=== PATIENT | male | born 1955 | race Caucasian/White ===

== ENCOUNTER 2018-01-04 08:39 | Emergency (ER) | payer MEDICARE, BC ==
[~2018-01-04] VITALS: Ht 170.2 cm; Wt 129.7 kg
[~2018-01-04 08:39] MED LIST: ALBU90OI INH; ALBU90OI61 INH; ALPR1 PO; ATOR40TA PO; Duoneb 2.5-0.5 M3 ML INH; FLUSAL5005 INH; FURO20 PO; GUAI120S1 PO; HYDACE10B PO; K-Dur20 MEQ PO; Kristalose20 GM PO; LACT10SY PO; LEVFLO500 PO; Lasix20 MG PO; Lasix40 MG PO; Norco 10-325 T1 EACH PO; POTASSIUM CHLO20 MEQ PO; POTCHL20ER PO; PRED1 PO; PRED20 PO; Prednisone20 MG PO; TIOT18 INH
[2018-01-04] MEDS ORDERED: PRED10 PO (09:08)
[2018-01-04 09:18] LABS: BASOPHILS ABSOLUTE AUTO 0.05 K/mm3 (0.00-0.23); BASOPHILS PERCENT AUTO 0 % (0-2); EOSINOPHILS ABSOLUTE AUTO 0.03 K/mm3 (0.00-0.68); EOSINOPHILS PERCENT AUTO 0 % (0-6); Hematocrit 40.6 % (37.0-53.0); Hemoglobin 13.3 g/dL (13.5-17.5); IMMATURE GRAN ABSOLUTE AUTO 0.06 K/mm3 (0.00-0.10); IMMATURE GRAN PERCENT AUTO 1 % (0-1); LYMPHOCYTES ABSOLUTE AUTO 1.04 K/mm3 (0.84-5.20); LYMPHOCYTES PERCENT AUTO 9 % (21-46); MONOCYTES ABSOLUTE AUTO 0.35 K/mm3 (0.16-1.47); MONOCYTES PERCENT AUTO 3 % (4-13); Mean Corpuscular HGB 27.7 pg (26.0-34.0); Mean Corpuscular HGB Conc 32.8 g/dL (31.5-36.5); Mean Corpuscular Volume 84 fL (80-100); NEUTROPHILS ABSOLUTE AUTO 10.19 K/mm3 (1.96-9.15); NEUTROPHILS PERCENT AUTO 87 % (41-73); Platelet Count 269 K/mm3 (150-400); RDW Coefficient Variation 13.3 % (11.7-14.2); RDW Standard Deviation 41.4 fL (35.1-46.3); Red Blood Cell Count 4.81 M/mm3 (4.30-5.90); White Blood Cell Count 11.72 K/mm3 (4.00-11.30)
[2018-01-04 09:38] LABS: Alanine Aminotransfer (ALT/SGP 41 U/L (12-78); Albumin, Blood 3.8 g/dL (3.4-5.0); Albumin/Globulin Ratio 0.9 (0.8-1.8); Alk Phos 58 U/L (50-136); Anion Gap 8 mmol/L (6-16); Aspartate Aminotrans (AST/SGOT 21 U/L (12-37); Bilirubin, Total 0.6 mg/dL (0.1-1.0); Blood Urea Nitrogen 20 mg/dL (8-24); Bun/Creatinine Ratio 25.4 (12.0-20.0); CO2, Blood 28 mmol/L (21-32); Calcium, Blood 9.8 mg/dL (8.5-10.1); Chloride, Blood 98 mmol/L (98-108); Creatinine, Blood 0.79 mg/dL (0.60-1.20); Globulin, Blood 4.2 g/dL (2.2-4.0); Glomerular Filtration Rate >60 (60-); Glucose, Blood 138 mg/dL (70-99); Potassium, Blood 4.3 mmol/L (3.5-5.5); Sodium, Blood 134 mmol/L (136-145); Troponin I <0.015 ng/mL (0.000-0.040)
[2018-01-04] MEDS ORDERED: HYDHCL25 PO (11:09)
== END 2018-01-04 11:43 | disposition home or self-care (01) ==
LOC: ER 08:39
PROVIDERS: Emergency Medicine
DX: R10.9 Unspecified abdominal pain (principal); J44.9 Chronic obstructive pulmonary disease, unspecified; E78.5 Hyperlipidemia, unspecified; F41.9 Anxiety disorder, unspecified; Z88.1 Allergy status to other antibiotic agents; Z79.899 Other long term (current) drug therapy; Z79.52 Long term (current) use of systemic steroids; F17.200 Nicotine dependence, unspecified, uncomplicated
CPT/HCPCS: 36415; 71046; 74177; 80053; 83690; 84484; 85025; 93005; 93010; Q9967

== ENCOUNTER 2018-11-01 12:50 | Emergency (ER) | payer MEDICARE, BC ==
[~2018-11-01] VITALS: Ht 170.2 cm; Wt 122.0 kg
[~2018-11-01 12:50] MED LIST changes: +HYDHCL25 PO; +PRED10 PO
[2018-11-01] MEDS ORDERED: ALBU2.5V5 (13:08)
[2018-11-01] MEDS ORDERED: Robaxin750 MG PO (13:09)
[2018-11-01] MEDS ORDERED: OMEPRAZOLE MAGN20 MG PO (13:10)
[2018-11-01] MEDS ORDERED: SERT50 PO (13:10)
[2018-11-01] MEDS ORDERED: AZIT250 PO (13:10)
[2018-11-01] MEDS ORDERED: PRED5 PO (13:10)
[2018-11-01 14:16] LABS: BASOPHILS ABSOLUTE AUTO 0.08 K/mm3 (0.00-0.23); BASOPHILS PERCENT AUTO 1 % (0-2); EOSINOPHILS ABSOLUTE AUTO 0.19 K/mm3 (0.00-0.68); EOSINOPHILS PERCENT AUTO 2 % (0-6); Hematocrit 41.3 % (37.0-53.0); Hemoglobin 13.2 g/dL (13.5-17.5); IMMATURE GRAN ABSOLUTE AUTO 0.05 K/mm3 (0.00-0.10); IMMATURE GRAN PERCENT AUTO 1 % (0-1); LYMPHOCYTES ABSOLUTE AUTO 1.73 K/mm3 (0.84-5.20); LYMPHOCYTES PERCENT AUTO 16 % (21-46); MONOCYTES ABSOLUTE AUTO 0.67 K/mm3 (0.16-1.47); MONOCYTES PERCENT AUTO 6 % (4-13); Mean Corpuscular HGB 27.4 pg (26.0-34.0); Mean Corpuscular Volume 86 fL (80-100); Mean Platelet Volume 9.1 fL (9.1-12.4); NEUTROPHILS ABSOLUTE AUTO 8.11 K/mm3 (1.96-9.15); NEUTROPHILS PERCENT AUTO 75 % (41-73); Platelet Count 275 K/mm3 (150-400); RDW Standard Deviation 40.4 fL (35.1-46.3); Red Blood Cell Count 4.81 M/mm3 (4.30-5.90); White Blood Cell Count 10.83 K/mm3 (4.00-11.30)
[2018-11-01 14:32] LABS: Alanine Aminotransfer (ALT/SGP 28 U/L (12-78); Albumin, Blood 3.6 g/dL (3.4-5.0); Albumin/Globulin Ratio 0.9 (0.8-1.8); Alk Phos 66 U/L (50-136); Anion Gap 8 mmol/L (6-16); Aspartate Aminotrans (AST/SGOT 16 U/L (12-37); Bilirubin, Total 0.5 mg/dL (0.1-1.0); Blood Urea Nitrogen 14 mg/dL (8-24); Bun/Creatinine Ratio 19.4 (12.0-20.0); CO2, Blood 27 mmol/L (21-32); Calcium, Blood 8.6 mg/dL (8.5-10.1); Chloride, Blood 101 mmol/L (98-108); Creatinine, Blood 0.72 mg/dL (0.60-1.20); Globulin, Blood 4.1 g/dL (2.2-4.0); Glomerular Filtration Rate >60 (60-); Glucose, Blood 85 mg/dL (70-99); Potassium, Blood 3.9 mmol/L (3.5-5.5); Sodium, Blood 136 mmol/L (136-145); Total Protein, Blood 7.7 g/dL (6.4-8.2)
[2018-11-01] MEDS ORDERED: ALBU90OI6 INH (16:08)
[2018-11-01] MEDS ORDERED: CITRATE OF MAG296 ML PO (16:08)
== END 2018-11-01 16:21 | disposition home or self-care (01) ==
LOC: ER 12:50
PROVIDERS: Emergency Medicine
DX: K59.00 Constipation, unspecified (principal); J44.9 Chronic obstructive pulmonary disease, unspecified; E78.5 Hyperlipidemia, unspecified; Z87.891 Personal history of nicotine dependence
CPT/HCPCS: 36415; 74176; 80053; 83690; 85025; 93005; 93010; 99284-25

== ENCOUNTER 2019-04-14 16:06 | Inpatient (IN) | payer MEDICARE, BC ==
[~2019-04-14] VITALS: Ht 172.7 cm; Wt 81.7 kg
[~2019-04-14 16:06] MED LIST changes: +ALBU2.5V5 INH; +ALBU3IS INH; +ALBU90OI6 INH; +AZIT250; +AZIT250 PO; +Allergy Relief10 M1 PO; +BACL10 PO; +CITRATE OF MAG296 ML PO; +GAVILAX17 GM PO; +K-TAB ER20 MEQ PO; +OMEPRAZOLE MAGN20 MG PO; +OXYM.05NI; +PRED5 PO; +Robaxin750 MG PO; +SERT50 PO
[2019-04-14 16:35] LABS: BASOPHILS ABSOLUTE AUTO 0.06 K/mm3 (0.00-0.23); BASOPHILS PERCENT AUTO 1 % (0-2); EOSINOPHILS ABSOLUTE AUTO 0.04 K/mm3 (0.00-0.68); EOSINOPHILS PERCENT AUTO 0 % (0-6); Hematocrit 39.7 % (37.0-53.0); Hemoglobin 12.8 g/dL (13.5-17.5); IMMATURE GRAN ABSOLUTE AUTO 0.07 K/mm3 (0.00-0.10); IMMATURE GRAN PERCENT AUTO 1 % (0-1); LYMPHOCYTES ABSOLUTE AUTO 1.45 K/mm3 (0.84-5.20); LYMPHOCYTES PERCENT AUTO 11 % (21-46); MONOCYTES ABSOLUTE AUTO 0.76 K/mm3 (0.16-1.47); MONOCYTES PERCENT AUTO 6 % (4-13); Mean Corpuscular HGB 27.9 pg (26.0-34.0); Mean Corpuscular HGB Conc 32.2 g/dL (31.5-36.5); Mean Corpuscular Volume 87 fL (80-100); Mean Platelet Volume 8.9 fL (9.1-12.4); NEUTROPHILS ABSOLUTE AUTO 10.83 K/mm3 (1.96-9.15); NEUTROPHILS PERCENT AUTO 82 % (41-73); Platelet Count 274 K/mm3 (150-400); RDW Coefficient Variation 13.2 % (11.7-14.2); RDW Standard Deviation 41.6 fL (35.1-46.3); Red Blood Cell Count 4.59 M/mm3 (4.30-5.90); White Blood Cell Count 13.21 K/mm3 (4.00-11.30)
[2019-04-14 16:59] LABS: Alanine Aminotransfer (ALT/SGP 32 U/L (12-78); Albumin, Blood 3.6 g/dL (3.4-5.0); Albumin/Globulin Ratio 0.8 (0.8-1.8); Alk Phos 65 U/L (50-136); Anion Gap 3 mmol/L (6-16); Aspartate Aminotrans (AST/SGOT 17 U/L (12-37); Bilirubin, Total 0.6 mg/dL (0.1-1.0); Blood Urea Nitrogen 15 mg/dL (8-24); Bun/Creatinine Ratio 22.6 (12.0-20.0); CO2, Blood 30 mmol/L (21-32); Chloride, Blood 103 mmol/L (98-108); Creatinine, Blood 0.66 mg/dL (0.60-1.20); Globulin, Blood 4.3 g/dL (2.2-4.0); Glomerular Filtration Rate >60 (60-); Glucose, Blood 121 mg/dL (70-99); Potassium, Blood 3.9 mmol/L (3.5-5.5); Sodium, Blood 136 mmol/L (136-145); Total Protein, Blood 7.9 g/dL (6.4-8.2); Troponin I <0.015 ng/mL (0.000-0.040)
[2019-04-14] MEDS ORDERED: PROAIR RESPICL90 MCG INH (17:11)
[2019-04-14] MEDS ORDERED: OMEPRAZOLE20 MG PO ×2 (17:14→21:38)
[2019-04-14] MEDS ORDERED: AZIT250 PO (21:36)
[2019-04-14] MEDS ORDERED: Robaxin750 MG PO (21:36)
[2019-04-14] MEDS ORDERED: PRED5 PO (21:37)
[2019-04-14 23:14] LABS: Adenovirus Not Detected (NOT DETECT); Bordetella pertussis Not Detected (NOT DETECT); Chlamydophila pneumoniae Not Detected (NOT DETECT); Coronavirus 229E Not Detected (NOT DETECT); Coronavirus HKU1 Not Detected (NOT DETECT); Coronavirus NL63 Not Detected (NOT DETECT); Coronavirus OC43 Not Detected (NOT DETECT); Human Metapneumovirus Not Detected (NOT DETECT); Human Rhinovirus/Enterovirus Not Detected (NOT DETECT); Influenza A Not Detected (NOT DETECT); Influenza A/2009-H1 Not Detected (NOT DETECT); Influenza A/H1 Not Detected (NOT DETECT); Influenza A/H3 Not Detected (NOT DETECT); Influenza B Not Detected (NOT DETECT); Mycoplasma pneumoniae Not Detected (NOT DETECT); Parainfluenza Virus 1 Not Detected (NOT DETECT); Parainfluenza Virus 2 Not Detected (NOT DETECT); Parainfluenza Virus 3 Not Detected (NOT DETECT); Parainfluenza Virus 4 Not Detected (NOT DETECT); Respiratory Syncytial Virus Not Detected (NOT DETECT)
[2019-04-15 04:28] LABS: BASOPHILS ABSOLUTE AUTO 0.02 K/mm3 (0.00-0.23); BASOPHILS PERCENT AUTO 0 % (0-2); EOSINOPHILS ABSOLUTE AUTO 0.01 K/mm3 (0.00-0.68); EOSINOPHILS PERCENT AUTO 0 % (0-6); Hematocrit 37.9 % (37.0-53.0); Hemoglobin 12.5 g/dL (13.5-17.5); IMMATURE GRAN PERCENT AUTO 1 % (0-1); LYMPHOCYTES ABSOLUTE AUTO 0.86 K/mm3 (0.84-5.20); LYMPHOCYTES PERCENT AUTO 6 % (21-46); MONOCYTES ABSOLUTE AUTO 0.45 K/mm3 (0.16-1.47); MONOCYTES PERCENT AUTO 3 % (4-13); Mean Corpuscular HGB 28.7 pg (26.0-34.0); Mean Corpuscular Volume 87 fL (80-100); Mean Platelet Volume 9.1 fL (9.1-12.4); NEUTROPHILS ABSOLUTE AUTO 14.26 K/mm3 (1.96-9.15); NEUTROPHILS PERCENT AUTO 91 % (41-73); Platelet Count 296 K/mm3 (150-400); RDW Coefficient Variation 13.1 % (11.7-14.2); RDW Standard Deviation 41.6 fL (35.1-46.3); Red Blood Cell Count 4.36 M/mm3 (4.30-5.90)
--- NOTE | 2019-04-15 04:37 | NUR ---
SHIFT SUMMARY PT NEW ED ADMIT THIS EVENING. BREATHING SLOWLY IMPROVING. PT CONTINUES TO GET SOB W/ EXERTION BUT RECOVERS WELL ONCE RESTING AGAIN. PT ON 3 L O2 NC WHICH IS PT'S BASELINE HOME DOSE. O2 SATS IN THE MID 90'S. LUNG SOUNDS DIMINISHED WITH SOME WHEEZING IN THE BASES. BREATHING TX PER RT. PT AMBULATES WELL W/ FWW. STEADY ON HIS FEET. NO COMPLAINTS OF PAIN. PT DID NOT SLEEP VERY MUCH THIS EVENING. PT REPORTS THIS IS NORMAL FOR HIM. LACTIC ACID 2.1. DR BAEZA NOTIFIED, NS STARTED AT 150 ML/HR FOR ONE BAG. OTHERWISE NO ACUTE CHANGES. WILL CONTINUE TO MONITOR.
[2019-04-15 04:42] LABS: Anion Gap 5 mmol/L (6-16); Blood Urea Nitrogen 17 mg/dL (8-24); Bun/Creatinine Ratio 23.4 (12.0-20.0); CO2, Blood 30 mmol/L (21-32); Chloride, Blood 103 mmol/L (98-108); Creatinine, Blood 0.73 mg/dL (0.60-1.20); Glomerular Filtration Rate >60 (60-); Glucose, Blood 137 mg/dL (70-99); Potassium, Blood 4.6 mmol/L (3.5-5.5); Sodium, Blood 138 mmol/L (136-145)
--- NOTE | 2019-04-15 13:04 | NUR ---
PT TAKES OFF OXYGEN TO SEE WHAT HAPPENS WITH O2 SAT. WHEN PULSE OX MONITOR ALARMS PT SHOUTS FOR A NURSE TO COME SEE WHAT HIS OXYGEN SAT IS. EXPLAINED TO PT THAT HE SHOULD KEEP HIS O2 ON.
--- NOTE | 2019-04-15 15:42 | NUR ---
Patient is sitting on the edge of his bed and alert. Patient openly shares about his struggles with not being allowed to take Mos[place], his struggles with only seeing a bleak future and his struggles with his family unit complications. I explore with patient sources of meaning, purpose and dignity. I provide empathic listening, pastoral educational guidance counselor, compaionship and prayer. Patient responds well and expresses gratitude after the prayer and states that it was very encouraging.
--- NOTE | 2019-04-15 17:59 | NUR ---
SHIFT SUMMARY PT AXO, THOUGH TANANA. PT MEDICATED FOR PAIN AND ANXIETY PER EMAR. AT START OF SHIFT PT WAS ASKING MULTIPLE QUESTIONS ABOUT MEDICATIONS THAT HE "COULD GET" AND DOSAGES. PT STATING THAT HE HAS GONE TO REHAB FOR [facility] ADDICTION IN THE PAST. PT ON CONTINUOUS PULSE OXIMETRY, SATING AT ABOUT 93% AT REST. PT ON 3L. THOUGH AT ONE POINT TODAY, PT REMOVED NASAL CANNULA AND BECAME SOB AND ANXIOUS. NURSE EDUCATED THAT PT NEEDS TO LEAVE NC ON IN ORDER TO REDUCE SOB. BED IN LOW POSITION, CALL LIGHT WITHIN REACH. PT REFUSES TO BE OOB.
--- NOTE | 2019-04-15 18:23 | NUR ---
PT SLEEPING REVIEW OF HIS NEEDS WITH NURSING WILL RETURN
--- NOTE | 2019-04-16 03:25 | NUR ---
SHIFT SUMMARY PATIENT HAD NO ACUTE CHANGES OBSERVED THIS SHIFT. AXO X3 AND ONE ASSIST TO BSC. ON 3L O2 NC AND STATING 93% ON CONTINUOUS PULSE OXIMETRY. RT IN FOR MULTIPLE BREATHING TX. TRIBE AND NEED TO BE FACE TO FACE. VSS/AFEBRILE. DENIES PAIN AND N/V. SOB W/EXERTION. SLEPT FIRST PART OF SHIFT AND UP MID SHIFT. PATIENT ANXIOUS AT TIMES. CALL LIGHT IN REACH. BED IN LOWEST POSITION. WILL CONTINUE TO MONITOR UNTIL DAY SHIFT RN ASSUMES CARE.
[2019-04-16 04:59] LABS: BASOPHILS ABSOLUTE AUTO 0.05 K/mm3 (0.00-0.23); BASOPHILS PERCENT AUTO 0 % (0-2); EOSINOPHILS ABSOLUTE AUTO 0.04 K/mm3 (0.00-0.68); EOSINOPHILS PERCENT AUTO 0 % (0-6); Hematocrit 38.2 % (37.0-53.0); Hemoglobin 12.1 g/dL (13.5-17.5); IMMATURE GRAN ABSOLUTE AUTO 0.14 K/mm3 (0.00-0.10); IMMATURE GRAN PERCENT AUTO 1 % (0-1); LYMPHOCYTES ABSOLUTE AUTO 2.23 K/mm3 (0.84-5.20); LYMPHOCYTES PERCENT AUTO 18 % (21-46); MONOCYTES ABSOLUTE AUTO 0.95 K/mm3 (0.16-1.47); MONOCYTES PERCENT AUTO 8 % (4-13); Mean Corpuscular HGB 27.6 pg (26.0-34.0); Mean Corpuscular HGB Conc 31.7 g/dL (31.5-36.5); Mean Corpuscular Volume 87 fL (80-100); Mean Platelet Volume 9.2 fL (9.1-12.4); NEUTROPHILS ABSOLUTE AUTO 9.26 K/mm3 (1.96-9.15); NEUTROPHILS PERCENT AUTO 73 % (41-73); Platelet Count 272 K/mm3 (150-400); RDW Coefficient Variation 13.3 % (11.7-14.2); RDW Standard Deviation 42.1 fL (35.1-46.3); Red Blood Cell Count 4.39 M/mm3 (4.30-5.90); White Blood Cell Count 12.67 K/mm3 (4.00-11.30)
[2019-04-16 05:21] LABS: Anion Gap 5 mmol/L (6-16); Blood Urea Nitrogen 20 mg/dL (8-24); Bun/Creatinine Ratio 26.3 (12.0-20.0); CO2, Blood 31 mmol/L (21-32); Chloride, Blood 104 mmol/L (98-108); Creatinine, Blood 0.76 mg/dL (0.60-1.20); Glomerular Filtration Rate >60 (60-); Glucose, Blood 105 mg/dL (70-99); Potassium, Blood 4.1 mmol/L (3.5-5.5); Sodium, Blood 140 mmol/L (136-145)
--- NOTE | 2019-04-16 16:42 | NUR ---
SHIFT SUMMARY PT AXO THOUGH NOTTAWASEPPI POTAWATOMI AND MAKES ODD STATEMENTS AT TIMES. VSS. PT SHOWERED TODAY AFTER ENCOURAGEMENT FROM NURSE AND INSIDE BARREL POLISHER, HE STATES THAT HE HAS NOT SHOWERED IN "YEARS" AND DOES SPONGE BATHS ONLY AT HOME. AFTER SHOWER, PT REPORTS FEELING BETTER. PT REQUESTED TO HAVE OXYGEN TURNED UP TO 3.5L DUE TO HIS SAT AT 91%. THIS NURSE EDUCATED PT ABOUT O2 GOALS. PT INSISTED AND O2 SAT INCREASED TO 96%. RT GRACE PRAKASH TITRATED O2 BACK TO 3L, SEE NOTE . PT 93% ON 3L AT THIS TIME. PT REMINDED TO REMAIN CALM WHEN HE FEELS LIKE HE CANNOT BREATHE. MEDICATED FOR ANXIETY PER EMAR. PT UP WITH 1 ASSIST TO BATHROOM. BED IN LOW POSITION, CALL LIGHT WITHIN REACH. NEW IV PLACED THIS SHIFT PER PT REQUEST FOR COMFORT.
--- NOTE | 2019-04-17 03:10 | NUR ---
SHIFT SUMMARY PATIENT HAD NO ACUTE CHANGES OBSERVED THIS SHIFT. AXOX 3 AND INDEPENDENT. VSS/AFEBRILE. DENIES PAIN AND N/V. SOB W/EXERTION. ON 3L O2 NC STATING 93% ON CONTINUOUS PULSE OXIMETRY. RT IN FOR MULTIPLE BREATHING TX. SOLU-MEDROL GIVEN PER EMAR. DULCOLAX GIVEN PER PATIENT REQUEST FOR CONSTIPATION. PATIENT STARTING TO HAVE SMALL BM'S. CALL LIGHT IN REACH. BED IN LOWEST POSITION. WILL CONTINUE TO MONITOR UNTIL DAY SHIFT NURSE ASSUMES CARE.
--- NOTE | 2019-04-17 18:53 | NUR ---
SHIFT SUMMARY NO ACUTE CHANGES TO PRESENT THIS SHIFT. PT SITTING UP TO EOB, DURING SHIFT REPORT THIS AM. PLEASANT AND CO-OP THRU OUT THE DAY. PARENTS CAME IN TO VISIT. PT TALKED ON PHONE, OFF AND ON TO PASS THE TIME. IS LOOKING FORWARD TO GOING HOME; "GETTING BORED". PT REPORTS NOT BEING ABLE TO SLEEP VERY LONG AT A TIME; RECEIVING SOLUMEDROL Q8 WELL RT TX'S. CXR DONE TODAY. PT REPORTS THAT HE IS FEELING BETTER. NOT SOB. CALL LT IN REACH.
[2019-04-18 05:01] LABS: BASOPHILS ABSOLUTE AUTO 0.02 K/mm3 (0.00-0.23); BASOPHILS PERCENT AUTO 0 % (0-2); EOSINOPHILS PERCENT AUTO 0 % (0-6); Hematocrit 39.1 % (37.0-53.0); Hemoglobin 12.5 g/dL (13.5-17.5); IMMATURE GRAN ABSOLUTE AUTO 0.23 K/mm3 (0.00-0.10); IMMATURE GRAN PERCENT AUTO 2 % (0-1); LYMPHOCYTES ABSOLUTE AUTO 0.99 K/mm3 (0.84-5.20); LYMPHOCYTES PERCENT AUTO 7 % (21-46); MONOCYTES ABSOLUTE AUTO 0.33 K/mm3 (0.16-1.47); MONOCYTES PERCENT AUTO 2 % (4-13); Mean Corpuscular HGB 27.9 pg (26.0-34.0); Mean Corpuscular Volume 87 fL (80-100); Mean Platelet Volume 9.1 fL (9.1-12.4); NEUTROPHILS ABSOLUTE AUTO 13.75 K/mm3 (1.96-9.15); NEUTROPHILS PERCENT AUTO 90 % (41-73); Platelet Count 343 K/mm3 (150-400); RDW Coefficient Variation 13.1 % (11.7-14.2); RDW Standard Deviation 41.6 fL (35.1-46.3); Red Blood Cell Count 4.48 M/mm3 (4.30-5.90); White Blood Cell Count 15.32 K/mm3 (4.00-11.30)
[2019-04-18 05:52] LABS: Anion Gap 6 mmol/L (6-16); Blood Urea Nitrogen 22 mg/dL (8-24); Bun/Creatinine Ratio 32.6 (12.0-20.0); CO2, Blood 29 mmol/L (21-32); Calcium, Blood 9.3 mg/dL (8.5-10.1); Chloride, Blood 100 mmol/L (98-108); Creatinine, Blood 0.68 mg/dL (0.60-1.20); Glomerular Filtration Rate >60 (60-); Glucose, Blood 221 mg/dL (70-99); Potassium, Blood 4.3 mmol/L (3.5-5.5); Sodium, Blood 135 mmol/L (136-145)
--- NOTE | 2019-04-18 06:21 | NUR ---
PT with obesity and emphysema oxygen dependent continues on IV steroids and complains thaey cause bloating and abd distention. He co severe constipation, and he requests dulcolax tabs. Started on miralax to tx. Encouraged routine bowel care to promote regular elimination. He is requiring extra oxygen baseline 2 l nc and he is at 3.5l, sleeps upright to promote lung expansion.
--- NOTE | 2019-04-18 17:16 | NUR ---
SHIFT SUMMARY NO ACUTE CHANGES. PATIETN DENIES PAIN, NAUSEA, AND SHORTNESS OF BREATH. 3L NC TO MAINTAIN OXYGEN SATURATION. PATIENT UP INDEPENDENT IN ROOM. CALL LIGHT IN REACH.
--- NOTE | 2019-04-19 04:05 | NUR ---
SHIFT SUMMARY PT GENERALLY ANXIOUS. HE HAS RESTED OFF AND ON THIS SHIFT. CLOSER TO 0100 PT REQUESTED ATIVAN. HE EXPRESSED FRUSTRATION ABOUT HIS ILLNESS AND ABOUT HIS FATHER'S SUFFERING WITH DEMENTIA. HE HAD SOME LAMONT BASED QUESTIONS AND REQUESTED A VISIT FROM PASTORAL CARE. WILL PLACE NURSING ORDER PER PT REQUEST. DURING SHIFT PT WAS TALKING LOUDLY TO HIMSELF IN THE ROOM FOR ABOUT HALF AN HOUR. IT WAS DIFFICULT TO MAKE OUT WHAT HE WAS SAYING. I INITALLY THOUGHT PT WAS ON THE PHONE, HOWEVER DISCOVERED HE WAS TALKING TO HIMSELF. PT HAS BEEN UP AND INDEPENDENT IN THE ROOM. STEADY ON HIS FEET. LUNGS DIMINISHED WITH CRACKLES IN THE BASES. 3L O2 IN PLACE. VITALS STABLE. PT PLESANT AND COOPERATIVE WITH CARE. WILL CONTINUE TO MONITOR AND REPORT TO ONCOMING RN.
--- NOTE | 2019-04-19 15:42 | NUR ---
SHIFT SUMMARY NO ACUTE CHANGES. PATIENT MEDICATED X 1 FOR PAIN. DENIES NAUSEA AND HSORTNESS OF BREATH. PATIENT NAPPING AND CHATTING ON PHONE DURING SHIFT. PATIENT'S MOTHER CAME TO VISIT DURING LUNCH. PATIENT BECAME ANXIOUS IN THE AFTERNOON BUT STATED HE DID NOT NEED MEDICATION AND HAD JUST BECOME TOO FORGE OPERATOR HELPER HIS ROOM. PATIENT INDEPENDENT IN ROOM. CALL LIGHT IN REACH.
--- NOTE | 2019-04-20 04:11 | NUR ---
SHIFT SUMMARY NO ACUTE CHANGES TO REPORT. PT HAS RESTED OFF AND ON THIS SHIFT. PT HAS SOME ANXIETY, MEDICATED X1 WITH PO ATIVAN. LUNG SOUNDS DIMINISHED T/O. PT HAS BEEN USING FLUTTER VALVE AND REPORTS PRODUCTIVE COUGH. BREATHING TREATMENTS PROVIDED PER EMAR ORDERS. PT INDEPENDENT IN THE ROOM. VITALS STABLE. WILL CONTINUE TO MONITOR AND REPORT TO ONCOMING RN.
[2019-04-20 04:44] LABS: Hematocrit 41.1 % (37.0-53.0); Hemoglobin 13.1 g/dL (13.5-17.5); Mean Corpuscular HGB 27.6 pg (26.0-34.0); Mean Corpuscular HGB Conc 31.9 g/dL (31.5-36.5); Mean Corpuscular Volume 87 fL (80-100); Platelet Count 303 K/mm3 (150-400); RDW Coefficient Variation 13.2 % (11.7-14.2); RDW Standard Deviation 42.4 fL (35.1-46.3); Red Blood Cell Count 4.74 M/mm3 (4.30-5.90); White Blood Cell Count 13.07 K/mm3 (4.00-11.30)
[2019-04-20 05:20] LABS: Anion Gap 5 mmol/L (6-16); Blood Urea Nitrogen 26 mg/dL (8-24); Bun/Creatinine Ratio 33.5 (12.0-20.0); CO2, Blood 34 mmol/L (21-32); Calcium, Blood 8.8 mg/dL (8.5-10.1); Chloride, Blood 101 mmol/L (98-108); Creatinine, Blood 0.78 mg/dL (0.60-1.20); Glomerular Filtration Rate >60 (60-); Glucose, Blood 128 mg/dL (70-99); Potassium, Blood 3.8 mmol/L (3.5-5.5); Sodium, Blood 140 mmol/L (136-145)
--- NOTE | 2019-04-20 17:32 | NUR ---
PT AOX4 AND COOPERATIVE OF CARE. INDEPENDENT TO RESTROOM. PT CALLS APPROPRIATELY. PT RESTING IN BED MOST OF THE DAY. HOME O2 EVAL COMPLETED. WILL CONTINUE TO MONITOR. TREATED FOR STOMACH PAIN PER EMAR.
--- NOTE | 2019-04-21 03:08 | NUR ---
ASSUMED CARE OF THE PATIENT. PATIENT AWAKE AND ASKING FOR PAIN MEDS. STATES PAIN IS IN ABDOMIN AND AROUND SIDES. ULTRAM GIVEN. DENIES ANY OTHER NEEDS OR CONCERNS AT THIS TIME.
--- NOTE | 2019-04-21 03:08 | NUR ---
SHIFT SUMMARY PT ADMITTED FOR COPD EXACERBATION. FULL CODE. REGULAR DIET. UP IN CHAIR FOR MEALS. CONTINUOUS PULSE OXIMETER. ENCOURAGE AMBULATION WITH O2. LOVENOX FOR DVT PROPHYLAXIS. 20 G IV TO L HAND. 3L O2 PER PT BASELINE. INDEPENDENT IN ROOM. TAKES MEDICATIONS WHOLE. POSSIBLE DICHARGE TODAY. PT WITH COMPLAINTS OF PAIN X1 AND MEDICATED PER EMAR. C/O ANXIETY X1 ONE, MEDICATED [ER EMAR. PT APPEARS TO SLEEP COMFORTABLY OFF AND ON THIS NIGHT. PT IS AWAKE AT THIS TIME WITH NO APPARRENT SIGNS OF ACUTE DISTRESS. ABLE TO MAKE NEEDS KNOWN AND CALL LIGHT IN REACH.
--- NOTE | 2019-04-21 06:23 | NUR ---
SHIFT SUMMARY: ASSUMED CARE OF THE PATIENT AROUND 0300. SINCE THEN THE PATIENT HAS BEEN PLEASANT AND COOPERATIVE. HE HAS REMAINED INDEPENDENT IN HIS ROOM. HE HAS GOTTEN ONE DOSE OF ULTRAM FOR PAIN. HE HAS TALKED TO SELF OFF AND ON SINCE THEN WITH NO ONE IN THE ROOM. SOMETIMES IN HIS SLEEP. HE HAS DENIED ANY NEEDS WHEN APPROCHED DURING THE EPISODES OF TALKING TO SELF, OR SIGNS OF CONFUSION. WILL CONTINUE TO MONITOR UNTIL DAY SHIFT RN ARRIVES.
[2019-04-21] MEDS ORDERED: AIRDUO RESPICL1 EAC2 INH (10:25)
[2019-04-21] MEDS ORDERED: DOXY100 PO (10:26)
[2019-04-21] MEDS ORDERED: GUAI600T33 PO (10:27)
[2019-04-21] MEDS ORDERED: TRAM50 PO (10:28)
[2019-04-21] MEDS ORDERED: Prednisone10 MG PO (10:32)
--- NOTE | 2019-04-21 11:29 | NUR ---
PT DISCHARGED AT 1325. ALL PAPERWORK REVEIWED AND EDUCATIONAL MATERIAL SENT WITH PT. PT HAD HIS MOTHER BRING HIS O2 TANK FROM HOME FOR DISCHARGE. MEDICATIONS FAXED TO [facility]. PT WAS SET UP WITH PACKET TO SET UP CARE AT [facility]. PT WAS INSTRUCTED TO GO TO [facility] FOR FOLLOW UP APPOINTMENT. PT TOOK ALL BELONGINGS WITH HIM. PT WAS ESCORTED VIA WHEELCHAIR BY NURSE TO [facility].
== END 2019-04-21 11:23 | disposition home or self-care (01) | DRG 871 ==
LOC: ER 16:06 → MEDS 20:09 → ENPENDDIS 04-21 11:09 → MEDS 04-21 11:23
PROVIDERS: Emergency Medicine; Internal Medicine; Nurse Practitioner Acute Care; ADMIT Hospitalist
DX: A41.9 Sepsis, unspecified organism (principal); J96.21 Acute and chronic respiratory failure with hypoxia; J18.9 Pneumonia, unspecified organism; J44.1 Chronic obstructive pulmonary disease with (acute) exacerbation; J44.0 Chronic obstructive pulmonary disease with (acute) lower respiratory infection; R65.20 Severe sepsis without septic shock; G25.81 Restless legs syndrome; Z74.09 Other reduced mobility; F41.9 Anxiety disorder, unspecified; E66.01 Morbid (severe) obesity due to excess calories; Z88.1 Allergy status to other antibiotic agents; Z99.81 Dependence on supplemental oxygen; Z87.891 Personal history of nicotine dependence; Z79.51 Long term (current) use of inhaled steroids; Z79.899 Other long term (current) drug therapy; Z68.27 Body mass index [BMI] 27.0-27.9, adult
CPT/HCPCS: 0099U; 36415; 71046; 80048; 80053; 83605; 83880; 84145; 84484; 85025; 85027; 87040; 93005; 93010; 94640; 94644; 94760; 94761; 94762; 96374; 96375; 99285-25; A9270; J1170; J1650; J1956; J2405; J2930; J7030; J7512; Q0163

== ENCOUNTER 2020-01-19 13:40 | Inpatient (IN) | payer MEDICARE, BC, OTHER ==
[~2020-01-19] VITALS: Ht 170.2 cm; Wt 126.3 kg
[~2020-01-19 13:40] MED LIST changes: +AIRDUO RESPICL1 EAC2 INH; -ALBU2.5V5 INH; +DOXY100 PO; +GUAI600T33 PO; -K-TAB ER20 MEQ PO; +OMEPRAZOLE20 MG PO; +Prednisone10 MG PO; -SERT50 PO; -TIOT18 INH
[2020-01-19 14:26] LABS: BASOPHILS ABSOLUTE AUTO 0.06 K/mm3 (0.00-0.23); BASOPHILS PERCENT AUTO 1 % (0-2); EOSINOPHILS ABSOLUTE AUTO 0.22 K/mm3 (0.00-0.68); EOSINOPHILS PERCENT AUTO 3 % (0-6); Hematocrit 40.9 % (37.0-53.0); IMMATURE GRAN ABSOLUTE AUTO 0.04 K/mm3 (0.00-0.10); IMMATURE GRAN PERCENT AUTO 0 % (0-1); LYMPHOCYTES ABSOLUTE AUTO 1.15 K/mm3 (0.84-5.20); LYMPHOCYTES PERCENT AUTO 13 % (21-46); MONOCYTES ABSOLUTE AUTO 0.56 K/mm3 (0.16-1.47); MONOCYTES PERCENT AUTO 6 % (4-13); Mean Corpuscular HGB 27.5 pg (26.0-34.0); Mean Corpuscular HGB Conc 31.8 g/dL (31.5-36.5); Mean Corpuscular Volume 87 fL (80-100); Mean Platelet Volume 9.6 fL (9.1-12.4); NEUTROPHILS ABSOLUTE AUTO 6.94 K/mm3 (1.96-9.15); NEUTROPHILS PERCENT AUTO 77 % (41-73); Platelet Count 278 K/mm3 (150-400); RDW Coefficient Variation 12.6 % (11.7-14.2); RDW Standard Deviation 40.2 fL (35.1-46.3); Red Blood Cell Count 4.73 M/mm3 (4.30-5.90); White Blood Cell Count 8.97 K/mm3 (4.00-11.30)
[2020-01-19 14:42] LABS: Alanine Aminotransfer (ALT/SGP 29 U/L (12-78); Albumin, Blood 3.9 g/dL (3.4-5.0); Alk Phos 60 U/L (50-136); Anion Gap 4 mmol/L (6-16); Aspartate Aminotrans (AST/SGOT 20 U/L (12-37); Bilirubin, Total 0.4 mg/dL (0.1-1.0); Blood Urea Nitrogen 15 mg/dL (8-24); Bun/Creatinine Ratio 16.2 (12.0-20.0); CO2, Blood 30 mmol/L (21-32); Calcium, Blood 9.2 mg/dL (8.5-10.1); Chloride, Blood 102 mmol/L (98-108); Creatinine, Blood 0.93 mg/dL (0.60-1.20); Globulin, Blood 3.9 g/dL (2.2-4.0); Glomerular Filtration Rate >60 (60-); Glucose, Blood 116 mg/dL (70-99); Potassium, Blood 4.5 mmol/L (3.5-5.5); Sodium, Blood 136 mmol/L (136-145); Total Protein, Blood 7.8 g/dL (6.4-8.2)
[2020-01-19 14:43] LABS: Troponin I <0.015 ng/mL (0.000-0.040)
[2020-01-19 16:39] LABS: PCO2 Arterial 53.3 mmHg (35-45); PO2 Arterial 80.5 mmHg (80-100); pH Blood Arterial 7.37 (7.35-7.45)
[2020-01-19] MEDS ORDERED: ALBU90OI INH (17:30)
[2020-01-19] MEDS ORDERED: Budesonide0.5 MG/2 M NEB (17:31)
[2020-01-19] MEDS ORDERED: Duoneb 2.5-0.5 M3 ML NEB (17:32)
[2020-01-19] MEDS ORDERED: FURO20 PO (17:32)
[2020-01-19] MEDS ORDERED: TRAM50 PO (17:33)
[2020-01-19] MEDS ORDERED: POTA10T PO (17:33)
[2020-01-19] MEDS ORDERED: TIOT18 INH (17:34)
[2020-01-19] MEDS ORDERED: SERT50 PO (17:50)
--- NOTE | 2020-01-19 19:17 | NUR ---
Received report from MAYRA Husain-ED @ 4932. Patient arrived to unit @ 1855 via stretcher. Settled to room, bed in lowest position. Call light near by.
--- NOTE | 2020-01-20 04:24 | NUR ---
SHIFT SUMMARY ADMITTED FROM ER JUST BEFORE THIS SHIFT. ACUTE ON CHRONIC RESPIRATORY FAILURE. FULL CODE. HE WAS 3 LPM O2 @ BASELINE, IN PAST WEEK HE UPPED HIS O2 TO 4 LPM. HE IS ON A REGULAR DIET, STANDBY ASSIST, A&O X3-4: VERY ANXIOUS AND SEEMS CONFUSED BY MEDICAL TREATMENTS. RAPID COVID NEGATIVE. ANKLES/FEET SWOLLEN +2. LIVES W/HIS MOTHER. SUSPECTED COPD EXACERBATION. CHF MENTIONED IN SOME REPORTS. PLAN IS FOR LASIX & STEROID ADMINISTRATION TO ALLEVIATE S/SX. CHRONIC BACK PAIN, HE INFORMED ME OF HX OF A PAIN CONTRACT. HE IS PRESCRIBED 1 TRAMADOL OF 50 MG/DAY - MAXIMUM OF 15 PILLS A MONTH AT HOME. BREATHING TREATMENTS AVAILABLE PRN AND SCHEDULED
[2020-01-20 05:50] LABS: BASOPHILS ABSOLUTE AUTO 0.01 K/mm3 (0.00-0.23); BASOPHILS PERCENT AUTO 0 % (0-2); EOSINOPHILS PERCENT AUTO 0 % (0-6); Hematocrit 40.6 % (37.0-53.0); IMMATURE GRAN ABSOLUTE AUTO 0.08 K/mm3 (0.00-0.10); IMMATURE GRAN PERCENT AUTO 1 % (0-1); LYMPHOCYTES ABSOLUTE AUTO 0.78 K/mm3 (0.84-5.20); LYMPHOCYTES PERCENT AUTO 7 % (21-46); MONOCYTES ABSOLUTE AUTO 0.08 K/mm3 (0.16-1.47); MONOCYTES PERCENT AUTO 1 % (4-13); Mean Corpuscular HGB 27.4 pg (26.0-34.0); Mean Corpuscular Volume 86 fL (80-100); Mean Platelet Volume 9.7 fL (9.1-12.4); NEUTROPHILS ABSOLUTE AUTO 9.57 K/mm3 (1.96-9.15); NEUTROPHILS PERCENT AUTO 91 % (41-73); Platelet Count 305 K/mm3 (150-400); RDW Coefficient Variation 12.5 % (11.7-14.2); RDW Standard Deviation 39.3 fL (35.1-46.3); Red Blood Cell Count 4.74 M/mm3 (4.30-5.90); White Blood Cell Count 10.52 K/mm3 (4.00-11.30)
[2020-01-20 06:13] LABS: Anion Gap 5 mmol/L (6-16); Blood Urea Nitrogen 15 mg/dL (8-24); Bun/Creatinine Ratio 19.3 (12.0-20.0); CO2, Blood 29 mmol/L (21-32); Chloride, Blood 101 mmol/L (98-108); Creatinine, Blood 0.78 mg/dL (0.60-1.20); Glomerular Filtration Rate >60 (60-); Glucose, Blood 163 mg/dL (70-99); Potassium, Blood 4.3 mmol/L (3.5-5.5); Sodium, Blood 135 mmol/L (136-145)
[2020-01-20] MEDS ORDERED: Ativan1 MG PO (13:51)
[2020-01-20] MEDS ORDERED: Seroquel Xr50 MG PO (13:52)
--- NOTE | 2020-01-20 14:31 | NUR ---
DISCHARGE DISCHARGE MEDICATIONS AND INSTRUCTIONS EXPLAINED TO PATIENT. PATIENT STATED UNDERSTANDING. [facility] TO CONTACT PATIENT AT HOME FOR FOLLOW UP APPOINTMENT. IV REMOVED WITHOUT DIFFICULTY. PATIENT GIVEN ONE TIME DOSE OF ATIVAN BEFORE DISCHARGE FOR ANXIETY. PATIENT STATES UNDERSTANDING THAT HE CANNOT DRIVE WHILE TAKING ATIVAN. PATIENT TRANSFERED TO PRIVATE VEHICLE VIA WHEELCHAIR.
== END 2020-01-20 14:29 | disposition home or self-care (01) | DRG 189 ==
LOC: ER 13:40 → MEDS 17:59
PROVIDERS: Physician Assistant; ADMIT Internal Medicine
DX: J96.21 Acute and chronic respiratory failure with hypoxia (principal); J44.1 Chronic obstructive pulmonary disease with (acute) exacerbation; Z68.41 Body mass index [BMI] 40.0-44.9, adult; F41.0 Panic disorder [episodic paroxysmal anxiety]; F41.8 Other specified anxiety disorders; E78.5 Hyperlipidemia, unspecified; G25.81 Restless legs syndrome; E66.9 Obesity, unspecified; Z87.891 Personal history of nicotine dependence; Z79.51 Long term (current) use of inhaled steroids; Z79.52 Long term (current) use of systemic steroids
CPT/HCPCS: 36415; 36600; 71045; 80048; 80053; 82803; 83880; 84484; 85025; 93005; 93010; 94640; 94760; 96374; 99285-25; J1650; J2930; U0002

== ENCOUNTER 2020-10-27 07:18 | Emergency (ER) | payer MEDICARE, BC ==
[~2020-10-27] VITALS: Ht 167.6 cm; Wt 127.0 kg
[~2020-10-27 07:18] MED LIST changes: +Ativan1 MG PO; +Budesonide0.5 MG/2 M NEB; +IPRAT-ALBUT 0.5-3 ML INH; +POTA10T PO; +SERT50 PO; +Seroquel Xr50 MG PO; +TIOT18 INH; +TRAM50 PO
[2020-10-27] MEDS ORDERED: FLUTICASONE-SA1 EA10 INH (07:54)
[2020-10-27 08:17] LABS: BASOPHILS ABSOLUTE AUTO 0.05 K/mm3 (0.00-0.23); BASOPHILS PERCENT AUTO 1 % (0-2); EOSINOPHILS ABSOLUTE AUTO 0.16 K/mm3 (0.00-0.68); EOSINOPHILS PERCENT AUTO 2 % (0-6); Hematocrit 41.3 % (37.0-53.0); Hemoglobin 13.6 g/dL (13.5-17.5); IMMATURE GRAN ABSOLUTE AUTO 0.07 K/mm3 (0.00-0.10); IMMATURE GRAN PERCENT AUTO 1 % (0-1); LYMPHOCYTES ABSOLUTE AUTO 2.81 K/mm3 (0.84-5.20); LYMPHOCYTES PERCENT AUTO 26 % (21-46); MONOCYTES ABSOLUTE AUTO 0.65 K/mm3 (0.16-1.47); MONOCYTES PERCENT AUTO 6 % (4-13); Mean Corpuscular HGB 27.9 pg (26.0-34.0); Mean Corpuscular HGB Conc 32.9 g/dL (31.5-36.5); Mean Corpuscular Volume 85 fL (80-100); Mean Platelet Volume 9.5 fL (9.1-12.4); NEUTROPHILS ABSOLUTE AUTO 7.29 K/mm3 (1.96-9.15); NEUTROPHILS PERCENT AUTO 66 % (41-73); Platelet Count 262 K/mm3 (150-400); Red Blood Cell Count 4.87 M/mm3 (4.30-5.90); White Blood Cell Count 11.03 K/mm3 (4.00-11.30)
[2020-10-27 08:30] LABS: Alanine Aminotransfer (ALT/SGP 58 U/L (12-78); Albumin, Blood 3.6 g/dL (3.4-5.0); Alk Phos 61 U/L (50-136); Anion Gap 6 mmol/L (6-16); Aspartate Aminotrans (AST/SGOT 21 U/L (12-37); Bilirubin, Total 0.6 mg/dL (0.1-1.0); Blood Urea Nitrogen 18 mg/dL (8-24); Bun/Creatinine Ratio 19.6 (12.0-20.0); CO2, Blood 31 mmol/L (21-32); Chloride, Blood 102 mmol/L (98-108); Creatinine, Blood 0.92 mg/dL (0.60-1.20); Globulin, Blood 3.6 g/dL (2.2-4.0); Glomerular Filtration Rate >60 (60-); Glucose, Blood 121 mg/dL (70-99); Sodium, Blood 139 mmol/L (136-145); Total Protein, Blood 7.2 g/dL (6.4-8.2); Troponin I <0.015 ng/mL (0.000-0.040)
[2020-10-27] MEDS ORDERED: PRED20 PO (09:15)
[2020-10-27] MEDS ORDERED: DOXY100 PO (09:15)
== END 2020-10-27 09:49 | disposition home or self-care (01) ==
LOC: ER 07:18
PROVIDERS: Emergency Medicine
DX: J44.1 Chronic obstructive pulmonary disease with (acute) exacerbation (principal); Z88.1 Allergy status to other antibiotic agents; Z88.8 Allergy status to other drugs, medicaments and biological substances; Z88.5 Allergy status to narcotic agent; Z79.51 Long term (current) use of inhaled steroids; Z79.899 Other long term (current) drug therapy
CPT/HCPCS: 36415; 71045; 80053; 83880; 84484; 85025; 93005; 93010; 96374; 99285-25; A9270; J2930

== ENCOUNTER 2020-11-17 09:48 | Emergency (ER) | payer MEDICARE, BC ==
[~2020-11-17] VITALS: Ht 167.6 cm; Wt 127.0 kg
[~2020-11-17 09:48] MED LIST changes: +FLUTICASONE-SA1 EA10 INH
[2020-11-17 11:06] LABS: BASOPHILS ABSOLUTE AUTO 0.04 K/mm3 (0.00-0.23); BASOPHILS PERCENT AUTO 0 % (0-2); EOSINOPHILS ABSOLUTE AUTO 0.01 K/mm3 (0.00-0.68); EOSINOPHILS PERCENT AUTO 0 % (0-6); Hematocrit 42.3 % (37.0-53.0); Hemoglobin 13.8 g/dL (13.5-17.5); IMMATURE GRAN PERCENT AUTO 1 % (0-1); LYMPHOCYTES PERCENT AUTO 6 % (21-46); MONOCYTES ABSOLUTE AUTO 0.35 K/mm3 (0.16-1.47); MONOCYTES PERCENT AUTO 3 % (4-13); Mean Corpuscular HGB 27.6 pg (26.0-34.0); Mean Corpuscular HGB Conc 32.6 g/dL (31.5-36.5); Mean Corpuscular Volume 85 fL (80-100); Mean Platelet Volume 9.3 fL (9.1-12.4); NEUTROPHILS ABSOLUTE AUTO 11.86 K/mm3 (1.96-9.15); NEUTROPHILS PERCENT AUTO 90 % (41-73); Platelet Count 314 K/mm3 (150-400); RDW Coefficient Variation 12.8 % (11.7-14.2); RDW Standard Deviation 39.6 fL (35.1-46.3); White Blood Cell Count 13.16 K/mm3 (4.00-11.30)
[2020-11-17 11:23] LABS: Alanine Aminotransfer (ALT/SGP 42 U/L (12-78); Albumin, Blood 3.6 g/dL (3.4-5.0); Albumin/Globulin Ratio 0.9 (0.8-1.8); Alk Phos 67 U/L (50-136); Anion Gap 4 mmol/L (6-16); Aspartate Aminotrans (AST/SGOT 16 U/L (12-37); Bilirubin, Total 0.4 mg/dL (0.1-1.0); Blood Urea Nitrogen 13 mg/dL (8-24); Bun/Creatinine Ratio 18.6 (12.0-20.0); CO2, Blood 31 mmol/L (21-32); Calcium, Blood 9.2 mg/dL (8.5-10.1); Chloride, Blood 103 mmol/L (98-108); Globulin, Blood 4.2 g/dL (2.2-4.0); Glomerular Filtration Rate >60 (60-); Glucose, Blood 197 mg/dL (70-99); Potassium, Blood 4.5 mmol/L (3.5-5.5); Sodium, Blood 138 mmol/L (136-145); Total Protein, Blood 7.8 g/dL (6.4-8.2)
[2020-11-17] MEDS ORDERED: [UNRECOGNIZED DRUG - CODE] PO (12:20)
== END 2020-11-17 13:02 | disposition home or self-care (01) ==
LOC: ER 09:48
PROVIDERS: Physician Assistant
DX: J44.1 Chronic obstructive pulmonary disease with (acute) exacerbation (principal); I50.9 Heart failure, unspecified; B37.9 Candidiasis, unspecified; E78.5 Hyperlipidemia, unspecified; Z88.5 Allergy status to narcotic agent; Z88.1 Allergy status to other antibiotic agents; Z79.899 Other long term (current) drug therapy
CPT/HCPCS: 36415; 80053; 85025; 94644; 96374; 96375; 99285-25; J2060; J2930

== ENCOUNTER 2021-02-13 09:34 | Inpatient (IN) | payer MEDICARE, BC ==
[~2021-02-13] VITALS: Ht 170.2 cm; Wt 116.8 kg
[~2021-02-13 09:34] MED LIST changes: +[UNRECOGNIZED DRUG - CODE] PO
[2021-02-13 10:37] LABS: BASOPHILS ABSOLUTE AUTO 0.04 K/mm3 (0.00-0.23); BASOPHILS PERCENT AUTO 0 % (0-2); EOSINOPHILS ABSOLUTE AUTO 0.02 K/mm3 (0.00-0.68); EOSINOPHILS PERCENT AUTO 0 % (0-6); Hematocrit 41.6 % (37.0-53.0); Hemoglobin 13.7 g/dL (13.5-17.5); IMMATURE GRAN ABSOLUTE AUTO 0.08 K/mm3 (0.00-0.10); IMMATURE GRAN PERCENT AUTO 1 % (0-1); LYMPHOCYTES ABSOLUTE AUTO 0.82 K/mm3 (0.84-5.20); LYMPHOCYTES PERCENT AUTO 8 % (21-46); MONOCYTES ABSOLUTE AUTO 0.38 K/mm3 (0.16-1.47); MONOCYTES PERCENT AUTO 4 % (4-13); Mean Corpuscular HGB Conc 32.9 g/dL (31.5-36.5); Mean Corpuscular Volume 85 fL (80-100); Mean Platelet Volume 9.4 fL (9.1-12.4); NEUTROPHILS ABSOLUTE AUTO 9.58 K/mm3 (1.96-9.15); NEUTROPHILS PERCENT AUTO 88 % (41-73); Platelet Count 299 K/mm3 (150-400); RDW Standard Deviation 40.4 fL (35.1-46.3); Red Blood Cell Count 4.89 M/mm3 (4.30-5.90); White Blood Cell Count 10.92 K/mm3 (4.00-11.30)
[2021-02-13 10:41] LABS: Alanine Aminotransfer (ALT/SGP 32 U/L (12-78); Albumin, Blood 3.7 g/dL (3.4-5.0); Albumin/Globulin Ratio 0.9 (0.8-1.8); Alk Phos 60 U/L (50-136); Anion Gap 5 mmol/L (6-16); Aspartate Aminotrans (AST/SGOT 12 U/L (12-37); Bilirubin, Total 0.4 mg/dL (0.1-1.0); Blood Urea Nitrogen 18 mg/dL (8-24); Bun/Creatinine Ratio 23.7 (12.0-20.0); CO2, Blood 28 mmol/L (21-32); Calcium, Blood 9.2 mg/dL (8.5-10.1); Chloride, Blood 102 mmol/L (98-108); Creatinine, Blood 0.76 mg/dL (0.60-1.20); Glomerular Filtration Rate >60 (60-); Glucose, Blood 152 mg/dL (70-99); Sodium, Blood 135 mmol/L (136-145); Total Protein, Blood 7.7 g/dL (6.4-8.2); Troponin I <0.015 ng/mL (0.000-0.040)
[2021-02-13] MEDS ORDERED: FLUTICASONE-SA1 EA10 INH (12:54)
[2021-02-13] MEDS ORDERED: TIOT18 INH (13:09)
[2021-02-13] MEDS ORDERED: Ventolin/Prove6.7 GM INH (13:09)
[2021-02-13] MEDS ORDERED: FURO20 PO (16:05)
[2021-02-13] MEDS ORDERED: LORA.5 PO (16:05)
[2021-02-13] MEDS ORDERED: POTA10T PO (16:05)
--- NOTE | 2021-02-13 17:19 | NUR ---
PATIENT IS ALERT AND ORIENTED HE IS ANXIOUS. HE BECOMES DYSPNIEC WITH EXERTION. PATIENT USES URINAL AT THE BEDSIDEHE LIVES AT HOME WITH HIS MOM. HE SITS ON THE SIDE OF THE BED AND SITS UP TO SLEEP. 2,000 ML FLUID RESTRICTION. WILL CONTINUE TO MONITOR
--- NOTE | 2021-02-14 05:17 | NUR ---
CYLINDER DIE MACHINE OPERATOR SUMMARY NO ACUTE CHANGES. AAOX4 AND INDEPENDENT IN ROOM. ON 4L O2 VIA NC WHICH IS BASELINE. SOLUMEDROL Q8H. MEDICATED FOR LEG PAIN WITH PRN OXYCODONE. PT VERY HARD OF HEARING AND SEEMS TO STRUGGLE WITH UNDERSTANDING INFORMATION RELATED TO HIS CONDITION AND MEDS. VSS, WILL CONTINUE TO MONITOR.
--- NOTE | 2021-02-14 05:27 | NUR ---
FEEDER CATCHER TOBACCO SUMMARY PT TRANSFERED TO ROOM 304 FROM PCU AT START OF SHIFT. PT AAOX4 AND PLEASANT. ADMITTED FOR SEPSIS, ON LR @ 100 ML/HR. PT COMPLAINING OF CHRONIC BACK PAINS WELL NEW LOWER ABD PAIN. UNABLE TO GIVE TYLENOL PER MD ORDER TO HOLD UNLESS TEMP EXCEEDED 103. SPOKE WITH DR LEVY REGARDING NEED FOR PAIN CONTROL AND RECIEVED ORDER FOR PRN FENTANYL. PT REPORTED THAT IT HELPED A BIT BUT WAS ABLE TO SLEEP WELL SHORTLY AFTER. TEMP AT START OF SHIFT 102 BUT WITH AM VITALS IT WAS 99. OTHER VSS, WILL CONTINUE TO MONITOR.
[2021-02-14 05:35] LABS: BASOPHILS ABSOLUTE AUTO 0.02 K/mm3 (0.00-0.23); BASOPHILS PERCENT AUTO 0 % (0-2); EOSINOPHILS PERCENT AUTO 0 % (0-6); Hematocrit 41.2 % (37.0-53.0); Hemoglobin 13.3 g/dL (13.5-17.5); IMMATURE GRAN ABSOLUTE AUTO 0.11 K/mm3 (0.00-0.10); IMMATURE GRAN PERCENT AUTO 1 % (0-1); LYMPHOCYTES ABSOLUTE AUTO 0.75 K/mm3 (0.84-5.20); LYMPHOCYTES PERCENT AUTO 5 % (21-46); MONOCYTES ABSOLUTE AUTO 0.27 K/mm3 (0.16-1.47); MONOCYTES PERCENT AUTO 2 % (4-13); Mean Corpuscular HGB 27.1 pg (26.0-34.0); Mean Corpuscular HGB Conc 32.3 g/dL (31.5-36.5); Mean Corpuscular Volume 84 fL (80-100); Mean Platelet Volume 9.6 fL (9.1-12.4); NEUTROPHILS ABSOLUTE AUTO 13.72 K/mm3 (1.96-9.15); NEUTROPHILS PERCENT AUTO 92 % (41-73); Platelet Count 311 K/mm3 (150-400); RDW Standard Deviation 39.8 fL (35.1-46.3); White Blood Cell Count 14.87 K/mm3 (4.00-11.30)
[2021-02-14 05:58] LABS: Anion Gap 5 mmol/L (6-16); Blood Urea Nitrogen 18 mg/dL (8-24); Bun/Creatinine Ratio 22.3 (12.0-20.0); CO2, Blood 27 mmol/L (21-32); Calcium, Blood 9.2 mg/dL (8.5-10.1); Chloride, Blood 102 mmol/L (98-108); Creatinine, Blood 0.81 mg/dL (0.60-1.20); Glomerular Filtration Rate >60 (60-); Glucose, Blood 223 mg/dL (70-99); Potassium, Blood 4.5 mmol/L (3.5-5.5); Sodium, Blood 134 mmol/L (136-145)
--- NOTE | 2021-02-14 10:49 | NUR ---
ADMIT: 02/13/21 DX: acute on chronic respiratory failure CC: Leesa RauschRecent Hospitalizations: 01/20/20 acute on chronic respiratory failure (trend in time of year) RESIDENCE: [facility] - [address] [place] [id number] Code Status: Full CodeCAREGIVER: Inga Rickey, Parent, Alverto Mercadotrevor, Child, DME: bariatric wheelchair 2019, compression stockingsCCM: None HOME HEALTH: [facility] 05/2020
--- NOTE | 2021-02-14 16:42 | NUR ---
SHIFT SUMMARY PATIENT MEDICATED X2 FOR PIAN IN LEGS, DENIES NAUSEA, AND SHORTNESS OF BREATH. MAINTAINING OXYGEN SATURATION AVOVE 92% OM 3.5L/NC SAME BASELINE. UP INDEPENDENT IN ROOM. A/O X4 BUT FORGETFUL/HAS DIFFICULTY PROCESSING INFORMATION. MOTHER VISITED IN AFTERNOON.
[2021-02-15 05:48] LABS: BASOPHILS ABSOLUTE AUTO 0.02 K/mm3 (0.00-0.23); BASOPHILS PERCENT AUTO 0 % (0-2); EOSINOPHILS PERCENT AUTO 0 % (0-6); Hematocrit 40.2 % (37.0-53.0); Hemoglobin 12.9 g/dL (13.5-17.5); IMMATURE GRAN ABSOLUTE AUTO 0.17 K/mm3 (0.00-0.10); IMMATURE GRAN PERCENT AUTO 1 % (0-1); LYMPHOCYTES ABSOLUTE AUTO 0.72 K/mm3 (0.84-5.20); LYMPHOCYTES PERCENT AUTO 4 % (21-46); MONOCYTES PERCENT AUTO 3 % (4-13); Mean Corpuscular HGB 27.3 pg (26.0-34.0); Mean Corpuscular HGB Conc 32.1 g/dL (31.5-36.5); Mean Corpuscular Volume 85 fL (80-100); Mean Platelet Volume 9.8 fL (9.1-12.4); NEUTROPHILS ABSOLUTE AUTO 14.87 K/mm3 (1.96-9.15); NEUTROPHILS PERCENT AUTO 92 % (41-73); Platelet Count 325 K/mm3 (150-400); RDW Coefficient Variation 13.1 % (11.7-14.2); RDW Standard Deviation 40.9 fL (35.1-46.3); Red Blood Cell Count 4.72 M/mm3 (4.30-5.90); White Blood Cell Count 16.18 K/mm3 (4.00-11.30)
[2021-02-15 06:09] LABS: Alanine Aminotransfer (ALT/SGP 31 U/L (12-78); Albumin, Blood 3.6 g/dL (3.4-5.0); Albumin/Globulin Ratio 0.9 (0.8-1.8); Alk Phos 51 U/L (50-136); Anion Gap 5 mmol/L (6-16); Aspartate Aminotrans (AST/SGOT 11 U/L (12-37); Bilirubin, Total 0.3 mg/dL (0.1-1.0); Blood Urea Nitrogen 28 mg/dL (8-24); Bun/Creatinine Ratio 33.9 (12.0-20.0); CO2, Blood 30 mmol/L (21-32); Chloride, Blood 100 mmol/L (98-108); Creatinine, Blood 0.83 mg/dL (0.60-1.20); Globulin, Blood 3.9 g/dL (2.2-4.0); Glomerular Filtration Rate >60 (60-); Glucose, Blood 277 mg/dL (70-99); Potassium, Blood 4.4 mmol/L (3.5-5.5); Sodium, Blood 135 mmol/L (136-145); Total Protein, Blood 7.5 g/dL (6.4-8.2)
--- NOTE | 2021-02-15 06:16 | NUR ---
SHIFT SUMMARY: AOX3 WITH SOME FORGETFULNESS. TONAWANDA. DYSPENIC WITH EXERTION. ON 3L OF O2 NC, BASE LINE. LUNG SOUNDS TIGHT AND DIMINISHED, COUGH IS MOIST BUT NON-PRODUCTIVE. ENCOURAGED FLUTTER VALVE AND INSPIROMETER USE. BLE EDEMA 2+. SITS ON SIDE OF BED LEANING OVER TABLE MOST OF NIGHT. CHEST TIGHTNESS AND DISCOMFORT ACROSS THE UPPER CHEST AREA. NOT SURE IF HE IS FOLLOWING THE FLUID RESTRICTION, MIGHT BE FILLING UP CUP FROM SINK, EVEN THOUGH HE KNOWS HE IS ON A RESTRICTION. VS WNL, AFEBRILE. OXYCODONE FOR PAIN EVERY 4 HOURS. DID HAVE PARTIAL BED BATH LAST NIGHT. INCONTIENT/CONTIENT. NO OTHER CHANGES TO NOTE. CALL LIGHT IN REACH.
--- NOTE | 2021-02-15 13:55 | NUR ---
Update 02/15/21 1351: Per chart review this am, pt. not yet appropriate for discharge. On O2 to keep SPO2 92% or above. Vitals this am show 95% on 4LPM. Pt. on steroids and Lovenox currently. Discharge date TBD by Dr. Brady.
--- NOTE | 2021-02-15 17:45 | NUR ---
SHIFT SUMMARY PT A&O X3, OCC FORGETFUL. [place]. UP WITH ASSIST IN ROOM. MOVES TO EOB AND REPOSITIONS IN BED INDEPENDENTLY. C/O PAIN BLE- MED PER RX. PULM DR GONZALES INTO SEE PT TODAY- PALLIATIVE CARE CONSULT ORDERED. INCREASED SOB WITH ACTIVITY. PT ON 4L OXYGEN- BASELINE. NO ACUTE CHANGES THIS SHIFT. PLAN: POSSIBLE DISCHARGE HOME TOMORROW.
--- NOTE | 2021-02-16 06:24 | NUR ---
SHIFT SUMMARY: SLEPT BETTER THIS SHIFT. SLEEPS AN AVERAGE OF 2 HOURS AT A TIME. LUNG SOUNDS ARE DIMINISHED. COUGH IS PRODUCTIVE. USING FLUTTER VALVE AND INSPIROMETER WELL. BLOOD SUGAR WAS 303, INSULIN GIVEN. BLE EDEMA STILL PRESENT DUE TO HIM DANGLING ALL THE TIME. HE DID MENTION ABOUT GOING ONTO HOSPICE AND PLANS ON TALKING TO PALATIVE CARE ABOUT IT TODAY. STATES HE IS NOT GETTING BETTER AND DOES NOT WANT TO GO HOME. STATES HIS MOTHER CAN NOT PROVIDE FOR HIM AND HE LIKES IT HERE CUASE HE GETS HELP. MEDICATED FOR PAIN EVERY 4 HOURS. VS WNL. AFEBRILE. CALLS APPROPRIATLY. WILL REPORT TO DAYSHIFT.
--- NOTE | 2021-02-16 11:01 | NUR ---
pt sitting up and anxious pt ready to transition to hospice. He is concerned about the function of his trilogy and home oxygen he think it need smore preassure. Review of hospice he has not prferance hopes to go home tomorrow feesl today is to soon for his mother to adjust. Updated care amanger of his need and fears wtih his oxygen. pt had me speak with his mohter and update her on hospice. One a companyi aranged i will update them on his medication prfernces. He feels some of meds make him to somulent. He is hoping for some quality time.
--- NOTE | 2021-02-16 11:34 | NUR ---
will return to review a new polst pt was a little overwhelmed and timing not good.
--- NOTE | 2021-02-16 16:07 | NUR ---
Update 02/16/21: Palliative care met with pt. and mother this am to discuss hospice. [facility] Orders faxed to [facility] and request to possibly provide intake tomorrow. I have left a message for Riana with [facility] hospice as well. Possible need for DME.
--- NOTE | 2021-02-16 16:33 | NUR ---
Update 02/16/21: Palliative care met with pt. and mother this am to discuss hospice. Pt. has accepted [facility] hospice. Orders faxed to [facility] and request to possibly provide intake tomorrow. I have left a message for Riana with [facility] hospice as well. Possible need for DME. Discussed hospice with pt. and mother this afternoon to answer questions regarding the process of discharging on hospice. Pt. agitated throughout the discussion. Initially he was agreeable and polite. He then began to talk about how "complicated we are all making this." I advised him that it really was not a complicated process. Dr. Brady will add an order for hospice, hospice will arrange intake and DME, and then he will be able to go home. His mother interjected several times throughout the conversation to reassure him. When I left the room pt. agreeable to moving forward with hospice services.
--- NOTE | 2021-02-16 17:24 | NUR ---
SHIFT SUMMARY PT AXO, ANXIOUS, SNOQUALMIE BUT MOSTLY COOPERATIVE WITH CARE THOUGH PATIENT DID REFUSE A SHOWER THIS SHIFT. PT AGREED TO MINIMAL HYGEINE. VSS. PT DENIES "AIR HUNGER" BUT COMPLAINS OF PAIN. MEDICATED PER EMAR. PT REQUESTED TO SEE PALLIATIVE CARE NURSE AND DR. GONZALES THROUGHOUT THE DAY, SEE NOTES. IV PATENT AND SALINE LOCKED. CBG ACHS, SEE RESULTS, MEDICATED PER EMAR. PT UP AD OMAR IN ROOM. BED IN LOW POSITION, CALL LIGHT WITHIN REACH. NO OTHER CHANGES THIS SHIFT.
--- NOTE | 2021-02-17 05:19 | NUR ---
BULL GANG SUPERVISOR SUMMARY NO ACUTE CHANGES THIS SHIFT. PT AAOX4 AND PLEASANT. REMAINS ON 4L O2 VIA NC. MEDICATED FOR PAIN X2 WITH OXY 10 MG. PT HAS NOT SLEPT MUCH TONIGHT AND SPENDS MOST OF HIS TIME PLAYING CARDS AT THE BEDSIDE. VSS, WILL CONTINUE TO MONITOR.
--- NOTE | 2021-02-17 12:26 | NUR ---
02/17/21- per chart review with Dr. Brady, pt will discharge on 02/18/21. This is when hospice will be able to go to the home and admit him into their services. Faxed orders to [facility]. Spoke with Riana and she will contact the pt's mom to have equipment delivered to the home prior to the pt discharging. -jane
--- NOTE | 2021-02-17 17:54 | NUR ---
met with pt he was very anxious but refusing ativan. He is hypervigilant about his breathing and afraid to sleep. He was repetative at times and distraught. We discused getting some sleep. He states he has a polst at home tied to update polst he did not want to talk about it. Spent about thirty minutes in theraputic conversation he was reviewing his live and his marriage and his children and his regrets he is worried about his mother and want me to call her and reassure her. We reiviewed someof his favorite activities he loved tribe and hosre racing and loves to play cards. He is hopeng to be able to walk a remberto more and hang out with his parents and play card. He was very pensive and meloncholy. Carefully affirmed his life and kept my comments to a minimum. Will update the chaplian at [facility].
--- NOTE | 2021-02-17 18:07 | NUR ---
SHIFT SUMMARY NO ACUTE CHANGES NOTED TO PT THIS SHIFT. PT A&OX4, FORGETFUL AT TIMES. ABLE TO MAKE NEEDS KNOWN, PLEASANT AND COOPERATIVE TO CARE. PT MEDICATED FOR CHRONIC PAIN PER EMAR. NO C/O CP, SOB, OR N&V. PT ON 4LPM O2 VIA NC, SATS >92%. PT CONTINUES TO RECEIVE TX FROM RT ORDERED. PT POSSIBLE DISCHARGE TOMORROW TO WITH HOSPICE SERVICES. BED AT LOWEST POSITION. CALL LIGHT WITHIN REACH.
--- NOTE | 2021-02-18 04:56 | NUR ---
SHIFT SUMMARY NO ACUTE CHANGES THIS SHIFT. PT A/O X3 WITH GARBLED SPEECH AT TIMES, HOWEVER HE IS ABLE TO MAKE HIS NEEDS KNOWN. IND IN THE ROOM AND ON 4 L O2 VIA NC. C/O FREQUENT LEG PAIN AND TREATED PER EMR. PT RECEIVES BREATHING TREATMENTS PER RT AND HAS A RESCUE INHALER AT BEDSIDE. WILL DC HOME ON HOSPICE. VSS. WILL REPORT TO THE ONCOMING RN.
[2021-02-18] MEDS ORDERED: LEVOFLOXACIN500 M1 PO (12:11)
[2021-02-18] MEDS ORDERED: OXAYDO5 M1 PO (12:14)
[2021-02-18] MEDS ORDERED: Prednisone10 MG (12:15)
[2021-02-18] MEDS ORDERED: ROPI.25 PO (12:16)
[2021-02-18] MEDS ORDERED: MORPHINE INH (12:18)
--- NOTE | 2021-02-18 12:57 | NUR ---
PT WAS DISCHARGED VIA WHEELCHAIR WITH BELONGINGS AND O2 AT SIDE. PT WAS TREATED PER EMAR FOR BLE PAIN WHILE IN OUR CARE. PT WAS FEELING ANXIOUSE AND ENCOURAGED TO USE SLOW DEEP BREATHING TO RELAX. PT DID BECOME VERBALLY ABUSIVE TO STAFF HE WAS LEAVING AND WAS ASKED TO STOP. PT WAS ALERT AND ORIENTED UPON DC. SHOES LEFT IN ROOM. WILL PACHAGE AND LEAVE AT NURSES STATION WITH NAME.
== END 2021-02-18 12:45 | disposition hospice, home (50) | DRG 189 ==
LOC: ER 09:34 → MEDS 09:35
PROVIDERS: Emergency Medicine; ADMIT Internal Medicine
DX: J96.21 Acute and chronic respiratory failure with hypoxia (principal); E78.5 Hyperlipidemia, unspecified; J43.9 Emphysema, unspecified; G89.29 Other chronic pain; G47.33 Obstructive sleep apnea (adult) (pediatric); F41.9 Anxiety disorder, unspecified; Z20.822 Contact with and (suspected) exposure to COVID-19; G25.81 Restless legs syndrome; T38.0X5A Adverse effect of glucocorticoids and synthetic analogues, initial encounter; R73.9 Hyperglycemia, unspecified; J20.9 Acute bronchitis, unspecified; Z88.1 Allergy status to other antibiotic agents; Z88.5 Allergy status to narcotic agent; Z88.8 Allergy status to other drugs, medicaments and biological substances; Z79.899 Other long term (current) drug therapy; Z99.81 Dependence on supplemental oxygen; Z87.891 Personal history of nicotine dependence; Z98.890 Other specified postprocedural states; Z79.52 Long term (current) use of systemic steroids; Z79.51 Long term (current) use of inhaled steroids
CPT/HCPCS: 36415; 71046; 80048; 80053; 82947; 83880; 84484; 85025; 87070; 87077; 87186; 87205; 93005; 93010; 94640; 94644; 94664; 94667; 94668; 94760; 96372; 96374; 96376; 99285-25; A9270; G0378; J1650; J1940; J2920; J2930; J7512

== ENCOUNTER → 2022-08-08 | Outpatient (CLI) | payer MEDICARE, BC ==
[~2022-08-08] MED LIST changes: +LEVOFLOXACIN500 M1 PO; +LORA.5 PO; +MORPHINE INH; +OXAYDO5 M1 PO; +Prednisone10 MG; +ROPI.25 PO; +Ventolin/Prove6.7 GM INH
[2022-08-08 17:49] LABS: Hematocrit 38.5 % (37.0-53.0); Hemoglobin 12.3 g/dL (13.5-17.5); Mean Corpuscular HGB 27.5 pg (26.0-34.0); Mean Corpuscular HGB Conc 31.9 g/dL (31.5-36.5); Mean Corpuscular Volume 86 fL (80-100); Mean Platelet Volume 10.5 fL (9.1-12.4); Platelet Count 247 K/mm3 (150-400); RDW Coefficient Variation 13.2 % (11.7-14.2); RDW Standard Deviation 40.7 fL (35.1-46.3); Red Blood Cell Count 4.48 M/mm3 (4.30-5.90); White Blood Cell Count 9.58 K/mm3 (4.00-11.30)
[2022-08-08 18:20] LABS: Albumin, Blood 3.6 g/dL (3.4-5.0); Albumin/Globulin Ratio 0.9 (0.8-1.8); Bilirubin, Total 0.2 mg/dL (0.1-1.0); Bun/Creatinine Ratio 28.2 (12.0-20.0); Creatinine, Blood 0.75 mg/dL (0.60-1.20); Globulin, Blood 3.9 g/dL (2.2-4.0); Potassium, Blood 3.9 mmol/L (3.5-5.5); Total Protein, Blood 7.5 g/dL (6.4-8.2)
== END ==
LOC: LAB HH 15:37 → LAB SHORT 15:37
PROVIDERS: Physician Assistant
DX: I87.2 Venous insufficiency (chronic) (peripheral) (principal); R73.03 Prediabetes
CPT/HCPCS: 80053; 83735; 85027

== ENCOUNTER 2023-04-27 18:56 | Emergency (ER) | payer MEDICARE, BC ==
[~2023-04-27] VITALS: Ht 170.2 cm; Wt 116.1 kg
[2023-04-27] MEDS ORDERED: ROPINIROLE HC0.2510 PO (19:17)
[2023-04-27] MEDS ORDERED: GABA100 PO (19:17)
[2023-04-27 19:56] LABS: BASOPHILS ABSOLUTE AUTO 0.05 K/mm3 (0.00-0.23); BASOPHILS PERCENT AUTO 1 % (0-2); EOSINOPHILS ABSOLUTE AUTO 0.35 K/mm3 (0.00-0.68); EOSINOPHILS PERCENT AUTO 4 % (0-6); Hematocrit 37.2 % (37.0-53.0); Hemoglobin 11.9 g/dL (13.5-17.5); IMMATURE GRAN ABSOLUTE AUTO 0.02 K/mm3 (0.00-0.10); IMMATURE GRAN PERCENT AUTO 0 % (0-1); LYMPHOCYTES ABSOLUTE AUTO 1.18 K/mm3 (0.84-5.20); LYMPHOCYTES PERCENT AUTO 12 % (21-46); MONOCYTES ABSOLUTE AUTO 0.65 K/mm3 (0.16-1.47); MONOCYTES PERCENT AUTO 7 % (4-13); Mean Corpuscular HGB 27.2 pg (26.0-34.0); Mean Corpuscular Volume 85 fL (80-100); Mean Platelet Volume 9.7 fL (9.1-12.4); NEUTROPHILS ABSOLUTE AUTO 7.52 K/mm3 (1.96-9.15); NEUTROPHILS PERCENT AUTO 77 % (41-73); Platelet Count 259 K/mm3 (150-400); RDW Coefficient Variation 13.2 % (11.7-14.2); RDW Standard Deviation 40.8 fL (35.1-46.3); Red Blood Cell Count 4.37 M/mm3 (4.30-5.90); White Blood Cell Count 9.77 K/mm3 (4.00-11.30)
[2023-04-27 20:07] LABS: Albumin, Blood 3.6 g/dL (3.4-5.0); Albumin/Globulin Ratio 0.8 (0.8-1.8); Bilirubin, Total 0.2 mg/dL (0.1-1.0); Bun/Creatinine Ratio 21.1 (12.0-20.0); Calcium, Blood 8.8 mg/dL (8.5-10.1); Creatinine, Blood 0.76 mg/dL (0.60-1.20); Globulin, Blood 4.5 g/dL (2.2-4.0); Magnesium, Blood 2.2 mg/dL (1.6-2.4); Phosphorus, Blood 2.6 mg/dL (2.5-4.9); Potassium, Blood 4.1 mmol/L (3.5-5.5); Total Protein, Blood 8.1 g/dL (6.4-8.2)
[2023-04-27 20:11] LABS: International Normalized Ratio 1.03; Prothrombin Time Results 10.8 Sec (9.7-11.5)
[2023-04-27 20:45] LABS: Influenza A, PCR NEGATIVE (NEGATIVE); Influenza B, PCR NEGATIVE (NEGATIVE); Resp Syncytial Virus, PCR NEGATIVE (NEGATIVE); SARS-Cov-2 (COVID-19) PCR, MMC NEGATIVE (NEGATIVE)
[2023-04-27] MEDS ORDERED: Cleocin HCl150 MG PO (22:55)
[2023-04-27 23:00] VITALS: BP 132/74
== END 2023-04-27 23:26 | disposition home or self-care (01) ==
LOC: ER 18:56
PROVIDERS: Emergency Medicine
DX: L03.116 Cellulitis of left lower limb (principal); L03.115 Cellulitis of right lower limb; R06.02 Shortness of breath; J81.1 Chronic pulmonary edema; J44.9 Chronic obstructive pulmonary disease, unspecified; Z20.822 Contact with and (suspected) exposure to COVID-19; Z99.81 Dependence on supplemental oxygen; Z88.0 Allergy status to penicillin; Z88.5 Allergy status to narcotic agent; Z88.1 Allergy status to other antibiotic agents; Z79.899 Other long term (current) drug therapy
CPT/HCPCS: 0241U; 71045; 80053; 83735; 83880; 84100; 84484; 85025; 85610; 85730; 93005; 93010; 93970; 96374; 99285-25; A9270; J1940

== ENCOUNTER 2024-01-25 21:42 | Inpatient (IN) | payer MEDICARE, BC, OTHER ==
[~2024-01-25] VITALS: Ht 172.7 cm; Wt 109.8 kg
[~2024-01-25 21:42] MED LIST changes: +Cleocin HCl150 MG PO; +Enoxaparin 40 MG/0.4 ML SYR SC SCH; +GABA100 PO; +ROPINIROLE HC0.2510 PO; -Ventolin/Prove6.7 GM INH
[2024-01-25 22:00] LABS: Base Excess Venous 16.7 mmol/L; Bicarbonate Venous 37.4 mmol/L (24.0-30.0); PCO2 Venous 64.6 mmHg (38-42); pH Blood Venous 7.42 (7.34-7.37)
[2024-01-25] MEDS ORDERED: Albuterol 2.5 MG/3 ML VIAL INH SCH (22:00)
[2024-01-25] MEDS ORDERED: Ipratropium Bromide INH 0.02% 0.5 mg/2.5ML Vial INH SCH (22:00)
[2024-01-25 22:04] LABS: BASOPHILS ABSOLUTE AUTO 0.06 K/mm3 (0.00-0.23); BASOPHILS PERCENT AUTO 0 % (0-2); EOSINOPHILS ABSOLUTE AUTO 0.01 K/mm3 (0.00-0.68); EOSINOPHILS PERCENT AUTO 0 % (0-6); Hematocrit 40.4 % (37.0-53.0); Hemoglobin 12.7 g/dL (13.5-17.5); IMMATURE GRAN PERCENT AUTO 1 % (0-1); LYMPHOCYTES ABSOLUTE AUTO 0.95 K/mm3 (0.84-5.20); LYMPHOCYTES PERCENT AUTO 5 % (21-46); MONOCYTES ABSOLUTE AUTO 1.49 K/mm3 (0.16-1.47); MONOCYTES PERCENT AUTO 8 % (4-13); Mean Corpuscular HGB 27.6 pg (26.0-34.0); Mean Corpuscular HGB Conc 31.4 g/dL (31.5-36.5); Mean Corpuscular Volume 88 fL (80-100); Mean Platelet Volume 9.5 fL (9.1-12.4); NEUTROPHILS ABSOLUTE AUTO 16.67 K/mm3 (1.96-9.15); NEUTROPHILS PERCENT AUTO 87 % (41-73); Platelet Count 335 K/mm3 (150-400); RDW Coefficient Variation 13.2 % (11.7-14.2); RDW Standard Deviation 42.2 fL (35.1-46.3); White Blood Cell Count 19.28 K/mm3 (4.00-11.30)
[2024-01-25] MEDS ORDERED: MethylPREDNISolone Sod Succ 125 MG Vial IV ONE (22:20)
[2024-01-25 22:24] LABS: Albumin, Blood 3.5 g/dL (3.4-5.0); Albumin/Globulin Ratio 0.6 (0.8-1.8); Bilirubin, Total 0.8 mg/dL (0.1-1.0); Bun/Creatinine Ratio 38.9 (12.0-20.0); Calcium, Blood 9.9 mg/dL (8.5-10.1); Creatinine, Blood 0.75 mg/dL (0.60-1.20); Globulin, Blood 5.9 g/dL (2.2-4.0); Potassium, Blood 4.6 mmol/L (3.5-5.5); Total Protein, Blood 9.4 g/dL (6.4-8.2)
[2024-01-25] MEDS ORDERED: NS 1,000 ML IV SCH (22:25)
[2024-01-25] MEDS ORDERED: LevoFLOXacin 750 MG/D5W 150ML 150 ML IV ONE (22:30)
[2024-01-25] MEDS ORDERED: FentaNYL Citrate 50 MCG/ML 2 ML Injection IV ONE (22:50)
[2024-01-25] MEDS ORDERED: Ketorolac Tromethamine 30mg Vial IV ONE (22:50)
[2024-01-25] MEDS ORDERED: Ipratropium/Albuterol SulF 2.5-0.5MG/3 ML Amp INH PRN (23:05)
[2024-01-25] MEDS ORDERED: Ondansetron HCl 2 MG / ML 2ML Vial IV PRN (23:05)
[2024-01-25] MEDS ORDERED: HYDROmorphone HCl/Pf 1MG SYR IV ONE (23:20)
[2024-01-25 23:39] LABS: International Normalized Ratio 1.3; Prothrombin Time Results 13.6 Sec (9.7-11.5)
[2024-01-25] MEDS ORDERED: Diltiazem HCl 5 MG / ML 5ML Vial IV ONE (23:55)
[2024-01-26] VITALS (29 sets, daily range): BP systolic 111–183; BP diastolic 74–140
[2024-01-26] MEDS ORDERED: dilTIAZem HCL 125 MG in Dextrose 5% 100 ML IV SCH (00:15)
[2024-01-26 01:09] LABS: Influenza A, PCR NEGATIVE (NEGATIVE); Influenza B, PCR NEGATIVE (NEGATIVE); Resp Syncytial Virus, PCR NEGATIVE (NEGATIVE); SARS-Cov-2 (COVID-19) PCR, MMC NEGATIVE (NEGATIVE)
[2024-01-26] MEDS ORDERED: Albuterol 2.5 MG/3 ML VIAL INH PRN (05:10)
[2024-01-26] MEDS ORDERED: Ipratropium/Albuterol SulF 2.5-0.5MG/3 ML Amp INH SCH (05:15)
[2024-01-26 05:18] LABS: Source, Urine Straight Cath
[2024-01-26] MEDS ORDERED: ACET325 PO (05:27)
[2024-01-26] MEDS ORDERED: ALPR.25 PO (05:31)
[2024-01-26] MEDS ORDERED: BUDESONIDE0.5 MG/2 M INH (05:32)
[2024-01-26] MEDS ORDERED: MIRALAX17 GM PO (05:36)
[2024-01-26] MEDS ORDERED: SENNA LAXATIVE8.6 MG PO (05:39)
[2024-01-26] MEDS ORDERED: SILVADENE20 G8 TOP (05:41)
[2024-01-26] MEDS ORDERED: TRIDERM28.4 GM TOP (05:42)
--- NOTE | 2024-01-26 05:53 | NUR ---
PT ADMITTED TO ROOM ICU 5 FROM ER. ARRIVES TO ROOM AT 0512. SLIDE TRANSFERRED TO BED FROM [facility]. NO S/S DISTRESS OTHER THAN LABORED BREATHING. NOTED IN MONA AREA AND GROIN PT HAS REDNESS WITH ODOR. PT ALLOWS THIS TO BE CLEANED. DOES NOT COMPLAIN OF PAIN OR TENDERNESS. BIPAP AT 16/8 WITH 45 PERCENT FIO2. PT BECOMES AGITATED EASILY. IS REDIRECTABLE. DIFFICULT TO GET INFORMATION FROM PT. PT DOES ASK IF "IS THIS HOSPICE?" ORIENTED PT TO ICU AND THAT THE PROCESS OF GOING TO HOSPICE CARE COULD BE STARTED FROM HERE. WILL REVIEW CHART AND PLAN OF CARE FOR THIS PT.
[2024-01-26 05:55] LABS: U Amphetamine Screen Not Detected; U Barbituate Screen Not Detected; U Benzodiazapine Screen DETECTED; U Buprenorphine Screen Not Detected; U Cannabinoids Screen Not Detected; U Cocaine Screen Not Detected; U Methadone Screen Not Detected; U Methamphetamine Screen Not Detected; U Opiates Screen DETECTED; U Oxycodone Screen DETECTED; U Phencyclidine Screen Not Detected
[2024-01-26 05:56] LABS: Appearance, Urine Hazy (Clear); Bilirubin, Urine Neg (Neg); Blood, Urine 3+ (Neg); Color, Urine Yellow (P-Yellow); Glucose Qualitative, Urine Neg (Neg); Ketones, Urine Neg (Neg); Leukocyte Esterase, Urine Neg (Neg); Nitrite, Urine Neg (Neg); Protein, Urine 2+ (Neg); Urobilinogen, Urine NORM (Normal)
[2024-01-26 05:58] LABS: Bacteria Rare /hpf; Squamous Epithelial Cells Few /hpf (Few); White Blood Cells, Urine Not Seen /hpf (0-5)
[2024-01-26 05:59] LABS: Amorphous Heavy (0-Heavy)
[2024-01-26] MEDS ORDERED: MethylPREDNISolone Sod Succ 125 MG Vial IV SCH ×2 (08:00)
--- NOTE | 2024-01-26 08:07 | NUR ---
CARE ASSUMPTION DURING BEDSIDE SHIFT REPORT W SKYE NUNEZ THE PT IS ASLEEP IN BED WEARING BIPAP MASK. BIPAP SETTINGS 16/8 W 45% FIO2. RT INTO ROOM CHANGING SETTINGS TO 14/6 W 35% FIO2. MONITOR SHOWING SR 90'S. BP ELEVATED W SBP IN THE 150'S. PT ATTEMPTING TO COMMUNICATE BUT IS LIMITED DUE TO BIPAP MASK. PT FOLLOWING COMMANDS. WHILE SUCTUIONING THE PT HE CONVERTED BACK TO AFIB W RVR AND HR UP TO 160. PROVIDER CONTACTED AND NOTIFIED OF EVENT. PROVIDER EXPRESSING INTENT OF PLACING ORDERS. AWAITING ORDERS, SHIP LOADER NOTIFIED.
[2024-01-26] MEDS ORDERED: dilTIAZem HCL 120 MG CAP.CD PO SCH (09:00)
--- NOTE | 2024-01-26 09:39 | NUR ---
PROVIDER CONTACT DR. YI AT BEDSIDE ASSESSING THE PT. PROVIDER UPDATED ON PT'S RESP STATUS. PROVIDER UPDATED ON PT'S RUN OF SVT AND CURRENT CARDIOVASULAR STATUS INCLUDING HTN. PROVIDER UPDATED ON PT'S O2 NEEDS. PROVIDER UPDATED ON THICK YELLOW SECRETIONS AND THAT SPUTUM CULTURE SENT TO LAB. PROVIDER EXPRESSING INTENT ON PLACING ORDERS INCLUDING PCU TRANSFER ORDERS.
[2024-01-26 11:03] LABS: BASOPHILS ABSOLUTE AUTO 0.01 K/mm3 (0.00-0.23); BASOPHILS PERCENT AUTO 0 % (0-2); EOSINOPHILS PERCENT AUTO 0 % (0-6); Hematocrit 36.1 % (37.0-53.0); Hemoglobin 11.3 g/dL (13.5-17.5); IMMATURE GRAN ABSOLUTE AUTO 0.06 K/mm3 (0.00-0.10); IMMATURE GRAN PERCENT AUTO 1 % (0-1); LYMPHOCYTES ABSOLUTE AUTO 0.47 K/mm3 (0.84-5.20); LYMPHOCYTES PERCENT AUTO 4 % (21-46); MONOCYTES ABSOLUTE AUTO 0.24 K/mm3 (0.16-1.47); MONOCYTES PERCENT AUTO 2 % (4-13); Mean Corpuscular HGB 27.3 pg (26.0-34.0); Mean Corpuscular HGB Conc 31.3 g/dL (31.5-36.5); Mean Corpuscular Volume 87 fL (80-100); Mean Platelet Volume 9.6 fL (9.1-12.4); NEUTROPHILS ABSOLUTE AUTO 12.05 K/mm3 (1.96-9.15); NEUTROPHILS PERCENT AUTO 94 % (41-73); Platelet Count 274 K/mm3 (150-400); RDW Coefficient Variation 13.1 % (11.7-14.2); RDW Standard Deviation 41.7 fL (35.1-46.3); Red Blood Cell Count 4.14 M/mm3 (4.30-5.90); White Blood Cell Count 12.83 K/mm3 (4.00-11.30)
--- NOTE | 2024-01-26 11:13 | NUR ---
PROVIDER CONTACT THE PATIENT, HIS BROTHER, AND HIS MOTHER ALL EXPRESSING DESIRE FOR TRANSITION TO HOSPICE CARE. PROVIDER CONTACTED AND NOTIFIED WELL PALLIATIVE CARE RN NOTIFIED.
[2024-01-26 11:25] LABS: Albumin, Blood 2.9 g/dL (3.4-5.0); Albumin/Globulin Ratio 0.5 (0.8-1.8); Bilirubin, Total 0.5 mg/dL (0.1-1.0); Bun/Creatinine Ratio 49.6 (12.0-20.0); Calcium, Blood 9.7 mg/dL (8.5-10.1); Creatinine, Blood 0.59 mg/dL (0.60-1.20); Globulin, Blood 5.3 g/dL (2.2-4.0); Total Protein, Blood 8.2 g/dL (6.4-8.2)
[2024-01-26 11:32] LABS: BASOPHILS PERCENT MAN 0 % (0-2); EOSINOPHILS PERCENT MAN 0 % (0-6); LYMPHOCYTES ABSOLUTE MAN 0.25 K/mm3 (0.84-5.20); LYMPHOCYTES PERCENT MAN 2 % (21-46); MONOCYTES ABSOLUTE MAN 0.38 K/mm3 (0.16-1.47); MONOCYTES PERCENT MAN 3 % (4-13); NEUTROPHILS ABSOLUTE MAN 12.18 K/mm3 (1.96-9.15); SEG NEUTROPHILS PERCENT MAN 95 % (41-73); TOTAL CELLS COUNTED 100
[2024-01-26] MEDS ORDERED: Acetaminophen 325 MG TABLET PO PRN (11:35)
[2024-01-26] MEDS ORDERED: OxyCODONE HCL 5 MG TAB PO PRN ×2 (11:35→12:40)
[2024-01-26] MEDS ORDERED: ALPRAZolam 0.25 MG Tab PO PRN ×2 (11:35→15:10)
[2024-01-26] MEDS ORDERED: Tiotropium Bromide 2.5 MCG/ACT MIST INHAL (10 ACT/4 GM) INH SCH ×2 (11:55→15:30)
[2024-01-26] MEDS ORDERED: Budesonide 0.5 MG/2 ML RESP INH SCH (11:55)
--- NOTE | 2024-01-26 11:59 | NUR ---
UPDATE PT REQUESTING TO BE TRANSIONED TO HOSPICE CARE. PROVIDER NOTIFIED OF THIS AND PALLIATIVE CARE RN AT BEDSIDE. PROVIDER GIVING ORDERS TO TRANSITION PT TO MED NO TELE STATUS.
[2024-01-26] MEDS ORDERED: Furosemide 10 MG / ML 2ML Vial IV PRN (12:25)
[2024-01-26] MEDS ORDERED: Lidocaine 2% Jelly Uro-Jet UR SCH (12:35)
[2024-01-26 12:54] LABS: Source, Urine Foley catheter
[2024-01-26 12:59] LABS: Bilirubin, Urine Neg (Neg); Blood, Urine 2+ (Neg); Color, Urine Yellow (P-Yellow); Glucose Qualitative, Urine Neg (Neg); Ketones, Urine 2+ (Neg); Leukocyte Esterase, Urine Neg (Neg); Nitrite, Urine Neg (Neg); Protein, Urine 2+ (Neg); Urobilinogen, Urine NORM (Normal)
[2024-01-26 13:00] LABS: Appearance, Urine Clear (Clear)
[2024-01-26 13:07] LABS: Bacteria Rare /hpf; Red Blood Cells, Urine 0-2 /hpf (0-2); Squamous Epithelial Cells Few /hpf (Few); White Blood Cells, Urine 0-2 /hpf (0-5)
--- NOTE | 2024-01-26 13:26 | NUR ---
pt and mother spoke with staff and physician about returning to hospice. Review with pt his wishes and he is ok with comfort care and hospice. Pt is known to this freelance writer from previous admissions. Kept it minimal due to his anexiety. Confirmed with physician pt primary care physician spoke with him last week about hospice. Called mother and left message intent is to offer support. She is [place] on free[place] so will call back later. Confirmed medications and treatments with phsycian. Pt on oxycodone outpatient and tolerating. Kept bipap and lasix as needed for comfort. Pt has retaining urine fley palced by nursing. Polst completed will have physician sign.
[2024-01-26] MEDS ORDERED: Morphine Sulfate 20 MG/1ML 1 ML Oral Syringe PO PRN (15:15)
--- NOTE | 2024-01-26 15:28 | NUR ---
pt aggitated and confussed increase in medications for aggitation.
--- NOTE | 2024-01-26 16:17 | NUR ---
PATIENT TRANSFERRED FROM ICU5, PATIENT RESPS 28, DEMANDING SPIRIVA AND PAIN MEDICATIONS, INCREASED ANXIETY. REPORTED TO DR ALMARAZ, MEDICATIONS DOSAGES AND ROUTINE CHANGED. PALLIATIVE CARE RN ELIAZAR PRESENT AND BEDSIDE, RT CALLED FOR PATIENT DEMANDING A TREATMENT. PATIENT NOW RESTING, NO S/S OF DISTRESS, CALL LIGHT WITH IN REACH, VERY THREE AFFILIATED
[2024-01-26] MEDS ORDERED: Potassium Chloride 10 Meq Tablet SA PO SCH (17:00)
[2024-01-26] MEDS ORDERED: Sennosides 8.6 MG Tab PO SCH (21:00)
[2024-01-26] MEDS ORDERED: Furosemide 20 MG Tab PO SCH (21:00)
[2024-01-26] MEDS ORDERED: Polyethylene Glycol 3350 17 gm PO SCH (21:00)
[2024-01-26] MEDS ORDERED: rOPINIRole HCl 0.25 MG Tab PO SCH (21:00)
[2024-01-26] MEDS ORDERED: LevoFLOXacin 750 MG/D5W 150ML 150 ML IV SCH (21:00)
[2024-01-26] MEDS ORDERED: Gabapentin 100 MG Cap PO SCH (21:00)
[2024-01-26] MEDS ORDERED: FentaNYL Citrate 50 MCG/ML 2 ML Injection IV PRN (22:35)
--- NOTE | 2024-01-27 05:29 | NUR ---
SHIFT SUMMARY PT IS ALERT, HARD TO ASSESS HIS ORIENTATION BECAUSE HE DOESN'T ANSWER MY QUESTIONS. LABORED BREATHING WITH USE OF ACCESORY MUSCLES. OXYGEN IS ON AT 7LPM NC FOR COMFORT. CALLS FREQUENTLY, OR HOLLERS OUT, BUT WHEN ASKED WHAT HE NEEDS HE RESPONDS WITH "JUST KILL ME", "GIVE ME A SHOT". C/O PAIN ALL OVER HIS BODY. MEDICATED PER EMAR. PT SEEMS TO BE ANXIOUS. HARRIS DRAINING DARK YELLOW URINE TO GRAVITY. NO BM THIS SHIFT, HAVING SMEARS. BED IN LOWEST POSITION, CALL LIGHT WITHIN REACH. BED ALARM SET FOR PT'S SAFETY.
[2024-01-27] MEDS ORDERED: Sertraline HCl 100 MG Tab PO SCH (09:00)
[2024-01-27] MEDS ORDERED: Promethazine HCl 25 MG Supp PR PRN (10:40)
[2024-01-27] MEDS ORDERED: Morphine Sulfate 20 MG/1ML 1 ML Oral Syringe SL PRN (10:40)
[2024-01-27] MEDS ORDERED: LORazepam 1 MG Tab PO PRN (10:40)
[2024-01-27] MEDS ORDERED: Atropine Sulfate 1% Opth Soln 2ML BTL SL PRN (10:40)
[2024-01-27] MEDS ORDERED: Scopolamine Hydrobromide Patch TOP PRN (10:40)
[2024-01-27] MEDS ORDERED: Acetaminophen 650 MG Supp PR PRN (10:40)
--- NOTE | 2024-01-27 12:23 | NUR ---
SYMPTOM MANAGEMENT PAIN ASSESSED WITH FLACC SCALE 6/10. ANXIETY NOTED WITH DYSPNEA. JOINT VISIT WITH PRIMARY RN, ULICES PATTON AND CD STORAGE AND MATERIALS MAKE UP HELPER STUDENT. PT REPOSITIONED TO LEFT SIDE, RESCUE POSITION. NOTIFIED PROVIDER OF PT'S CHANGE IN MEDICAL STATUS HE IS ACTIVELY TRANSITIONING. TOES COOL TO THE TOUCH BILAT FEET. PPP X4. TRACE EDEMA. OBTAINED NEW COMFORT CARE ORDERS FROM DR. ANAYA. ORDERS PLACED ACCORDINGLY. PRIMARY RN UPDATED. THIS PC RN SPOKE WITH PT'S BROTHER MARCIO (PHONE [phone]) VIA PHONE AND PROVDIED AN UPDATE. MARCIO STATES HE WILL NOTIFY HIS MOM AND PT'S CHILDREN. PC TO REMAIN AVAILABLE NEEDED.
--- NOTE | 2024-01-27 12:43 | NUR ---
COMFORT CART ORDERED AT THIS TIME.
--- NOTE | 2024-01-27 14:29 | NUR ---
Spiritual care visit conducted. PAtient is lying in bed and alert. He is shallow breathing and only responds to me by nodding "yes" or "no." Patient affirms that he is scared, lonely and angry. Once we esablished these things he did not respond to any other question until I asked him if I could say a prayer for him. Then he reached out and grabbed my hand and pulled it toward his body. I take this as a "yes" to prayer. I say an end-of-life, last rights prayer, salvation prayer, and blessing all in one. He squeezes my hand a the conclusion of the prayer and nods his head. He does not respond to any other question after that while I was in the room.
--- NOTE | 2024-01-27 17:54 | NUR ---
SHIFT SUMMARY; PATIENT HAS HAD GUPPY BREATHING MOST OF DAY. HIS FINGERS AND HANDS ARE SHOWING POOR PERFUSION. HE HAS EPISODES OF YELLING OUT RARELY. HIS MOM IS AT BEDSIDE. HE REMAINS ON 6 LITERS O2. SPIRITUAL CARE WAS CONSULTED AND ALEIDA HARRIS CAME TO SEE PATIENT. AFTER DARI VISIT PATIENT DID APPEAR TO CALM FOR QUITE AWHILE.
--- NOTE | 2024-01-28 06:47 | NUR ---
SHIFT SUMMARY PT IS UNRESPONSIVE. 6L OF OXYGEN FOR PT'S COMFORT. MEDICATED WITH PRN'S FOR COMFORT. HARRIS DRAINING YELLOW URINE TO GRAVITY. NO BM THIS SHIFT. TIME OF , 0500. CALLED OBDULIA'S MOTHER, TAWANNA TO NOTIFY HER AT 0505. WAITING ON TAWANNA TO COME INTO HOSPITAL TO SEE PT. NOTIFIED DR LEVY IN PERSON AT 0530. BILAT WRIST PIV'S REMOVED. HARRIS CATHETER REMOVED.
== END 2024-01-28 05:00 | DRG 871 ==
LOC: ER 21:42 → ICUE 23:02 → MEDS 23:02 → ICUE 01-26 05:21 → MEDS 01-26 14:42
PROVIDERS: Emergency Medicine; Hospitalist; ADMIT Internal Medicine
PROC: 5A09457 Assistance with Respiratory Ventilation, 24-96 Consecutive Hours, Continuous Positive Airway Pressure (ICD-10-PCS; principal; 2024-01-25)
PROC: 3E03329 Introduction of Other Anti-infective into Peripheral Vein, Percutaneous Approach (ICD-10-PCS; 2024-01-25)
DX: A41.02 Sepsis due to Methicillin resistant Staphylococcus aureus (principal); G92.8 Other toxic encephalopathy; J96.21 Acute and chronic respiratory failure with hypoxia; J15.212 Pneumonia due to Methicillin resistant Staphylococcus aureus; J96.22 Acute and chronic respiratory failure with hypercapnia; J44.1 Chronic obstructive pulmonary disease with (acute) exacerbation; J44.0 Chronic obstructive pulmonary disease with (acute) lower respiratory infection; Z66 Do not resuscitate; Z51.5 Encounter for palliative care; I48.0 Paroxysmal atrial fibrillation; D64.9 Anemia, unspecified; G47.33 Obstructive sleep apnea (adult) (pediatric); E78.5 Hyperlipidemia, unspecified; G89.4 Chronic pain syndrome; F41.1 Generalized anxiety disorder; Z79.891 Long term (current) use of opiate analgesic; Z99.81 Dependence on supplemental oxygen; Z88.0 Allergy status to penicillin; Z88.5 Allergy status to narcotic agent; Z88.1 Allergy status to other antibiotic agents; Z79.899 Other long term (current) drug therapy; Z87.891 Personal history of nicotine dependence
CPT/HCPCS: 0241U; 36415; 71045; 80053; 81001; 82140; 82803; 83605; 83735; 83880; 84484; 85025; 85610; 87040; 87070; 87077; 87086; 87147; 87186; 87205; 93005; 93010; 94640; 94644; 94660; 94664; 94760; 96365; 96375; 99285-25; A9270; J1170; J1650; J1885; J1940; J1956; J2919; J3010; J7030